=== PATIENT | female | born 1940 | race Caucasian/White ===

== ENCOUNTER 2016-08-19 18:56 | Emergency (ER) | payer MEDICARE, OTHER ==
[2016-08-19] MEDS ORDERED: Hydromorphone 1 mg/ml Ampule IV ONE (19:39)
[2016-08-19] MEDS ORDERED: Phenergan 25 MG INJ IV ONE (19:39)
--- NOTE | 2016-08-19 19:41 | ERPHSYRPT ---
- History of Present Illness Time Seen by Provider: 08/19/16 19:28 Source: patient Exam Limitations: no limitations Patient Subjective Stated Complaint: pt lost balance and fell on dog crate, co pain to right elbow and left middle back Triage Nursing Assessment: pt has swelling to right elbowable to move well, nail beds pink, has large contusion to left middle of back, no brusing or abrsions, pt walked in Physician History: ABOUT 4.5 HOURS AGO PT WAS CRAWLING ON THE COUCH ADJUSTING CURTAINS AT HOME AND FELL ON A METAL DOG CAGE WITH RESULTANT BACK PAIN OF THE ENTIRE LEFT SIDE AND RIGHT ELBOW PAIN. DENIES SHORTNESS OF AIR, VOMITING, NUMBNESS, WEAKNESS ON EITHER SIDE, HEADACHE. Allergies/Adverse Reactions: No Known Drug Allergies Allergy (Verified 08/19/16 19:11) Home Medications: Alprazolam 1 mg [Xanax 1 mg] 1 mg TID 08/19/16 [History] Diclofenac Sodium 75 mg BID 08/19/16 [History] Famotidine [Pepcid] 40 mg DAILY 08/19/16 [History] Fluoxetine HCl [Rapiflux] 40 mg BID 08/19/16 [History] Lisinopril 20 mg [Zestril 20 MG] 20 mg DAILY 08/19/16 [History] Simvastatin 40 mg [Zocor 40 mg] 40 mg DAILY 08/19/16 [History] Hx Tetanus, Diphtheria Vaccination/Date Given: No Hx Influenza Vaccination/Date Given: No Hx Pneumococcal Vaccination/Date Given: No Immunizations Up to Date: Yes - Review of Systems Ears, Nose, & Throat: Other (H.O.H.) Respiratory: No Dyspnea Abdominal/Gastrointestinal: No Vomiting Musculoskeletal: Back Pain, Joint Pain (RIGHT ELBOW PAIN), No Neck Pain Neurological: No Headache All Other Systems: Reviewed and Negative - Past Medical History Pertinent Past Medical History: Yes Neurological History: No Pertinent History ENT History: No Pertinent History Cardiac History: High Cholesterol, Hypertension Respiratory History: No Pertinent History Endocrine Medical History: No Pertinent History Musculoskeletal History: No Pertinent History GI Medical History: No Pertinent History Psycho-Social History: Depression Other Medical History: DEAF - Past Surgical History Past Surgical History: Yes Respiratory: No Pertinent History Gastrointestinal: No Pertinent History Musculoskeletal: Orthopedic Surgery - Social History Smoking Status: Never smoker Exposure to second hand smoke: Yes Drug Use: none Patient Lives Alone: No - Female History Hx Last Menstrual Period: post Hx Now: No - Nursing Vital Signs Nursing Vital Signs: Initial Vital Signs Temperature 97.9 F Temperature Source Oral Pulse Rate 78 Respiratory Rate 16 Blood Pressure [] 114/50 Pain Intensity 3 - Amrita Coma Score Best Eye Response (Anderson): (4) open spontaneously Best Verbal Response (Anderson): (5) oriented Best Motor Response (Anderson): (6) obeys commands Anderson Total: 15 - Physical Exam General Appearance: alert Head Injury: no evidence of injury Eye Exam: PERRL/EOMI ENT Exam: nml ext.inspection, other (H.O.H.; mm SLIGHTLY DRY) Neck Exam: No tenderness Respiratory/Chest Exam: normal breath sounds Cardiovascular Exam: regular rate/rhythm Gastrointestinal Exam: soft, normal bowel sounds Back Exam: decreased range of motion, other (LARGE AMOUNT OF EDEMA AND TENDERNESS OF THE LEFT SIDE OF THE BACK) Extremity Exam: normal inspection, normal range of motion, No sensory deficit Peripheral Pulses: dorsalis-pedis (R): 2+, dorsalis-pedis (L): 2+ Neurologic Exam: alert, cooperative, sensation nml Skin Exam: warm, dry SpO2 Interpretation: normal SpO2: 98 Oxygen Delivery: Room Air - Course Nursing assessment & vital signs reviewed: Yes - Radiology Exams Right Elbow X-ray Interpretation: Interpreted by me, No Fracture - CT Exams Chest CT Interpretation: Discussed w/radiologist (NO COMPS: LARGE AREA LEFT LOWER POSTERIOR CHEST WALL HEMATOMA/STS. NO FX. BILATERAL DEPENDENT ATELECTASIS & SCATTERED CALCIFIED MEDIASTINAL NODES. NO ACUTE CARDIOPULMONARY FINDINGS. SMALL HIATAL HERNIA.) Abdomen/Pelvis CT Interpretation: Discussed w/radiologist (NO COMPS: NO FX. MULTILEVEL LUMBAR DDD. CALCIFIED SPLENIC GRANULOMAS. NO ACUTE INTRA-ABDOMINAL OR PELVIC FINDINGS.) Ordered Tests: Active Orders 24 hr Category Date Time Status IV Insertion STAT Care 08/19/16 19:39 Active ABDOMEN AND PELVIS W/0 CONTRAS [CT] Stat Exams 08/19/16 19:39 Taken CHEST WITHOUT CONTRAST [CT] Stat Exams 08/19/16 19:39 Taken ELBOW (MINIMUM 3 VIEWS) Stat Exams 08/19/16 19:41 Taken AMYLASE Stat Lab 08/19/16 20:20 Completed CBC W DIFF Stat Lab 08/19/16 20:20 Completed CMP Stat Lab 08/19/16 20:20 Completed LIPASE Stat Lab 08/19/16 20:20 Completed MAG [MAGNESIUM] Stat Lab 08/19/16 20:20 Completed UA W/ MICROSCOPIC Stat Lab 08/19/16 21:04 Completed Medication Summary Generic Name Dose Route Start Last Admin Trade Name Freq PRN Reason Stop Dose Admin Sodium Chloride 1,000 mls @ 100 mls/hr 08/19/16 19:45 08/19/16 20:07 Sodium Chloride 0.9% 1000 Ml IV 09/18/16 19:44 100 mls/hr .Q10H TOYA Administration Sodium Chloride 1,000 mls @ 999 mls/hr 08/19/16 21:33 Sodium Chloride 0.9% 1000 Ml IV 08/19/16 22:33 .Q1H1M STA Discontinued Medications Generic Name Dose Route Start Last Admin Trade Name Freq PRN Reason Stop Dose Admin Hydromorphone HCl 1 mg 08/19/16 19:39 08/19/16 20:07 Hydromorphone 1 Mg/Ml Ampule IV 08/19/16 19:40 1 mg STAT ONE Administration Hydromorphone HCl Confirm 08/19/16 20:04 Hydromorphone 1 Mg/Ml Ampule Administered 08/19/16 20:05 Dose 1 mg .ROUTE .STK-MED ONE Promethazine HCl 12.5 mg 08/19/16 19:39 08/19/16 20:07 Phenergan 25 Mg Inj IV 08/19/16 19:40 12.5 mg STAT ONE Administration Promethazine HCl Confirm 08/19/16 20:04 Phenergan 25 Mg Inj Administered 08/19/16 20:05 Dose 25 mg .ROUTE .STK-MED ONE Lab/Rad Data: Laboratory Result Diagrams 08/19/16 20:20 08/19/16 20:20 Laboratory Results 08/19/16 08/19/16 08/19/16 Range/Units 21:04 20:20 20:20 WBC (4.0-10.5) K/mm3 RBC (4.1-5.4) M/mm3 Hgb (12.0-16.0) gm/dl Hct (35-47) % MCV (78-100) fl MCH (26-32) pg MCHC (32-36) g/dl RDW (11.5-14.0) % Plt Count (150-450) K/mm3 MPV (6-9.5) fl Gran % (36.0-66.0) % Lymphocytes % (24.0-44.0) % Monocytes % (0.0-12.0) % Eosinophils % (0.00-5.0) % Basophils % (0.0-0.4) % Basophils # (0-0.4) Sodium 139 (136-145) mEq/L Potassium 3.8 (3.5-5.1) mEq/L Chloride 102 (98-107) mEq/L Carbon Dioxide 22.6 (21-32) mEq/L Anion Gap 17.8 H (5-15) MEQ/L BUN 24 H (9-20) mg/dL Creatinine 1.18 (0.55-1.30) mg/dl Estimated GFR 48 ML/MIN Glucose 95 (70-110) MG/DL Calcium 8.8 (8.5-10.1) mg/dL Magnesium 2.0 (1.8-2.4) mg/dL Total Bilirubin 0.4 (0.2-1.0) mg/dL AST 29 (15-37) U/L ALT 27 (12-78) U/L Alkaline Phosphatase 79 (46-116) U/L Serum Total Protein 7.1 (6.4-8.2) gm/dL Albumin 3.8 (3.4-5.0) g/dL Amylase 34 (25-115) U/L Lipase 104 (73-393) U/L Ur Collection Type CLEAN CATCH Urine Color YELLOW (YELLOW) Urine Appearance CLEAR (CLEAR) Urine pH 5.5 (5-6) Ur Specific [place] >=1.030 (1.005-1.025) Urine Protein NEGATIVE (Negative) Urine Glucose (UA) NEGATIVE (NEGATIVE) mg/dL Urine Ketones SMALL-15 (NEGATIVE) Urine Nitrite NEGATIVE (NEGATIVE) Urine Bilirubin NEGATIVE (NEGATIVE) Urine Urobilinogen 0.2 (0-1) mg/dL Urine WBC (Auto) NEGATIVE (NEGATIVE) Urine RBC (Auto) SMALL (0-5) Jacob/ul Urine Microscopic RBC 15-25 (0-2) /HPF Urine Microscopic WBC 0-2 (0-5) /HPF Ur Epithelial Cells RARE (FEW) /HPF Urine Bacteria FEW (NEGATIVE) /HPF Specimen Received [id number] 08/19/16 Range/Units 20:20 WBC 15.4 H (4.0-10.5) K/mm3 RBC 3.78 L (4.1-5.4) M/mm3 Hgb 11.2 L (12.0-16.0) gm/dl Hct 34.6 L (35-47) % MCV 91.5 (78-100) fl MCH 29.6 (26-32) pg MCHC 32.4 (32-36) g/dl RDW 14.1 H (11.5-14.0) % Plt Count 365 (150-450) K/mm3 MPV 9.9 H (6-9.5) fl Gran % 73.3 H (36.0-66.0) % Lymphocytes % 16.4 L (24.0-44.0) % Monocytes % 8.8 (0.0-12.0) % Eosinophils % 1.2 (0.00-5.0) % Basophils % 0.3 (0.0-0.4) % Basophils # 0.05 (0-0.4) Sodium (136-145) mEq/L Potassium (3.5-5.1) mEq/L Chloride (98-107) mEq/L Carbon Dioxide (21-32) mEq/L Anion Gap (5-15) MEQ/L BUN (9-20) mg/dL Creatinine (0.55-1.30) mg/dl Estimated GFR ML/MIN Glucose (70-110) MG/DL Calcium (8.5-10.1) mg/dL Magnesium (1.8-2.4) mg/dL Total Bilirubin (0.2-1.0) mg/dL AST (15-37) U/L ALT (12-78) U/L Alkaline Phosphatase (46-116) U/L Serum Total Protein (6.4-8.2) gm/dL Albumin (3.4-5.0) g/dL Amylase (25-115) U/L Lipase (73-393) U/L Ur Collection Type Urine Color (YELLOW) Urine Appearance (CLEAR) Urine pH (5-6) Ur Specific [place] (1.005-1.025) Urine Protein (Negative) Urine Glucose (UA) (NEGATIVE) mg/dL Urine Ketones (NEGATIVE) Urine Nitrite (NEGATIVE) Urine Bilirubin (NEGATIVE) Urine Urobilinogen (0-1) mg/dL Urine WBC (Auto) (NEGATIVE) Urine RBC (Auto) (0-5) Jacob/ul Urine Microscopic RBC (0-2) /HPF Urine Microscopic WBC (0-5) /HPF Ur Epithelial Cells (FEW) /HPF Urine Bacteria (NEGATIVE) /HPF Specimen Received - Departure Time of Disposition: 21:41 Departure Disposition: Home Clinical Impression: LARGE HEMATOMA TO THE LEFT SIDE OF THE BACK, LEFT ELBOW SPRAIN, MILD DEHYDRATION, HTN, DEPRESSION, RIGHT ELBOW SPRAIN Condition: Fair Critical Care Time: No Referrals: KONG TAVERA MD [Primary Care Provider] - Instructions: Prevent Falls, Contusion Additional Instructions: FOLLOW UP WITH PRIVATE DOCTOR TOMORROW. WEAR RIGHT ARM SLING FOR COMFORT. RADHA WRAP TO RIGHT ELBOW FOR 4 DAYS. ELEVATE RIGHT ELBOW ABOVE HEART LEVEL FOR 24 HOURS. Prescriptions: Tramadol HCl 50 mg [Ultram 50 mg] 50 mg PO Q4H PRN PRN #14 tablet PRN Reason: Pain
[2016-08-19] MEDS ORDERED: Sodium Chloride 0.9% 1000 ML 1,000 ML IV SCH (19:45)
[2016-08-19] MEDS ORDERED: Phenergan 25 MG INJ ONE (20:04)
[2016-08-19] MEDS ORDERED: Hydromorphone 1 mg/ml Ampule ONE (20:04)
[2016-08-19] MEDS ORDERED: Sodium Chloride 0.9% 1000 ML 1,000 ML ONE (20:04)
[2016-08-19 20:24] LABS: BASOPHIL % 0.3 % (0.0-0.4); Eosinophil % 1.2 % (0.00-5.0); Granulocytes % 73.3 % (36.0-66.0); Lymphocytes % 16.4 % (24.0-44.0); Mean Cell Volume 91.5 fl (78-100); Mean Corpuscular Hemoglobin 29.6 pg (26-32); Mean Platelet Volume 9.9 fl (6-9.5); Monocytes % 8.8 % (0.0-12.0); Platelet Count 365 K/mm3 (150-450); Red Blood Count 3.78 M/mm3 (4.1-5.4); Red Cell Distribution Width 14.1 % (11.5-14.0); White Blood Count 15.4 K/mm3 (4.0-10.5)
[2016-08-19 20:58] LABS: ALBUMIN 3.8 g/dL (3.4-5.0); ANION GAP 17.8 MEQ/L (5-15); BILIRUBIN,TOTAL 0.4 mg/dL (0.2-1.0); Carbon Dioxide 22.6 mEq/L (21-32); Potassium 3.8 mEq/L (3.5-5.1); Total Protein 7.1 gm/dL (6.4-8.2)
[2016-08-19 21:07] VITALS: PULSE 78
[2016-08-19 21:17] LABS: Collection Type CLEAN CATCH
[2016-08-19 21:18] LABS: Bacteria FEW /HPF (NEGATIVE); COMPLETE URINE MICROSCOPIC? YES; Epithelial Cells RARE /HPF (FEW); Ph 5.5 (5-6); WBC 0-2 /HPF (0-5)
[2016-08-19 21:33] VITALS: O2SAT 98
[2016-08-19] MEDS ORDERED: Sodium Chloride 0.9% 1000 ML 1,000 ML IV STA (21:33)
[2016-08-19 22:08] VITALS: BP 125/53
--- NOTE | 2016-08-20 08:35 | XRAY ---
Indication: Left-sided pain following fall. Multiple contiguous axial images obtained through the chest without contrast as ordered. Comparison: None Mild bilateral dependent atelectasis. Tiny calcified granuloma in the posterior right lower lobe. No suspicious pulmonary mass, infiltrate, consolidation, effusion, or pneumothorax. Heart is not enlarged. Aorta mildly calcified without aneurysmal dilatation. Mediastinal and right perihilar calcified nodes. No pathologic mediastinal lymphadenopathy. Small hiatal hernia. Left posterior chest wall demonstrates large area of intramuscular hematoma and soft tissue swelling. Bony thorax intact. CT abdomen reported separately. Impression: 1. Left posterior chest wall hematoma and soft tissue swelling. No underlying fracture. 2. No acute cardiopulmonary abnormalities on this noncontrast exam. 3. Incidental small hiatal hernia and evidence for old granulomatous disease. CTDI 9.88
--- NOTE | 2016-08-20 08:41 | XRAY ---
Indication: Left-sided pain following fall. Multiple contiguous axial images obtained through the abdomen and pelvis without contrast as ordered. Comparison: None CT chest reported separately. Left posterior lower chest wall intramuscular hematoma and soft tissue swelling. Noncontrasted stomach and bowel loops appear nonobstructed. Normal appendix. No free fluid/air. Scattered calcified splenic granulomas. Remaining liver, gallbladder, pancreas, spleen, adrenal glands, kidneys, ureters, bladder, and uterus appear unremarkable for noncontrast exam. Mild aortoiliac calcifications without AAA. Osseous structures intact with moderate degenerative changes throughout the lumbar spine and mild dextrorotoscoliosis centered at the L2 level. Impression: 1. Left lower posterior chest wall hematoma and soft tissue swelling. No underlying fracture. 2. No acute intra-abdominal/pelvic abnormalities on this noncontrast exam. 3. Incidental calcified splenic granulomas, lumbar degenerative spondylosis, and scoliosis. CT DI 14.94
--- NOTE | 2016-08-20 08:50 | XRAY ---
Indication: Pain following fall. Comparison: None 3 views of the right elbow demonstrates tiny lateral epicondyle spur. No other bony, articular, or soft tissue abnormalities.
== END 2016-08-19 22:08 | disposition home or self-care (01) ==
LOC: ED 18:56
DX: S30.0XXA Contusion of lower back and pelvis, initial encounter (principal); S53.402A Unspecified sprain of left elbow, initial encounter; E86.0 Dehydration; I10 Essential (primary) hypertension; F32.9 Major depressive disorder, single episode, unspecified; S53.401A Unspecified sprain of right elbow, initial encounter; W01.198A Fall on same level from slipping, tripping and stumbling with subsequent striking against other object, initial encounter
CPT/HCPCS: 36000; 36415; 71250; 73080; 74176; 80053; 81000; 82150; 83690; 83735; 85025; 96360; 96361; 96374; 96375; 99285; J1170; J2550

== ENCOUNTER 2021-04-20 13:54 | Inpatient (IN) | payer MEDICARE ==
[2021-04-20] MEDS ORDERED: VASOTEC I.V. 2.5 MG IV ONE ×2 (14:29→14:35)
[2021-04-20] MEDS: Sodium Chloride 0.9% 1000 ML 1,000 ML IV SCH (14:36)
[2021-04-20 14:58] LABS: Absolute Neutrophil Ct (ANC) 8.59 (1.4-6.9); BASOPHIL % 0.5 % (0.0-0.4); Basophil (Absolute #) 0.06 (0-0.4); Eosinophil % 2.7 % (0.00-5.0); Eosinophil (Absolute #) 0.31 (0-0.5); Hematocrit 37.8 % (35-47); Hemoglobin 11.5 gm/dl (12.0-16.0); Lymphocyte (Absolute #) 1.55 (1.0-4.6); Lymphocytes % 13.7 % (24.0-44.0); Mean Cell Volume 92.6 fl (78-100); Mean Corpuscular Hemoglobin 28.2 pg (26-32); Mean Corpuscular Hgb Concent. 30.4 g/dl (32-36); Mean Platelet Volume 9.5 fl (7.5-11.0); Monocyte (Absolute #) 0.82 (0.0-1.3); Monocytes % 7.2 % (0.0-12.0); Neutrophil % 75.9 % (36.0-66.0); Platelet Count 266 K/mm3 (150-450); Red Blood Count 4.08 M/mm3 (4.1-5.4); Red Cell Distribution Width 14.2 % (11.5-14.0); White Blood Count 11.3 K/mm3 (4.0-10.5)
[2021-04-20 14:58] LABS: Appearance CLEAR (CLEAR); Bilirubin NEGATIVE (NEGATIVE); Blood SMALL Ery/ul (0-5); Glucose NEGATIVE (NEGATIVE); Ketones NEGATIVE (NEGATIVE); Leukocyte Esterase NEGATIVE (NEGATIVE); Mucus SLIGHT /HPF (NEGATIVE); Nitrite NEGATIVE (NEGATIVE); Protein,Urine Dip NEGATIVE (Negative); Specific Gravity 1.008 (1.005-1.025); Urobilinogen NEGATIVE mg/dL (0-1)
[2021-04-20 15:01] LABS: Bacteria NONE SEEN /HPF (NEGATIVE)
[2021-04-20 15:07] LABS: ALBUMIN 4.2 g/dL (3.5-5.0); ALKALINE PHOSPHATASE 77 U/L (38-126); ANION GAP 11.2 MEQ/L (5-15); BLOOD UREA NITROGEN 19 mg/dL (7-17); CHLORIDE 103 mmol/L (98-107); Calcium 9.2 mg/dL (8.4-10.2); Carbon Dioxide 28 mmol/L (22-30); Creatinine 1 0.76 mg/dL (0.52-1.04); EST GLOMERULAR FILTRATION RATE > 60.0 ML/MIN; Glucose 97 mg/dL (74-106); Potassium 4.4 mmol/L (3.5-5.1); SGOT/AST 29 U/L (14-36); SGPT/ALT 23 U/L (0-35); SODIUM 138 mmol/L (137-145); Total Protein 6.6 g/dL (6.3-8.2)
--- NOTE | 2021-04-20 15:07 | XRAY ---
Indication: Altered mental status. Confusion. Comparison: None Portable apical lordotic chest clear. Heart not enlarged with incidental mediastinal/hilar calcified nodes. Bony thorax intact with mild osteopenia, degenerative changes, and mild double curvature scoliosis. Impression: Nonacute chest with chronic features.
--- NOTE | 2021-04-20 15:07 | XRAY ---
Indication: Confusion. Acute mental status change. Multiple contiguous axial images obtained through the head without contrast. Comparison: None Bilateral posterior cochlear implants produces extreme beam artifact limiting exam. There is age-appropriate global atrophy and moderate/advanced periventricular degenerative micro-ischemia bilaterally. No obvious acute intracranial hemorrhage, abnormal extra-axial fluid collection, or mass effect. Fourth ventricle is midline without hydrocephalus. Visualized paranasal sinuses and mastoid air cells are clear. Impression: 1. 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 2. Atrophy and degenerative micro-ischemia within normal limits for patient's age. 3. No gross acute intracranial abnormalities.
[2021-04-20 15:12] LABS: Amphetamine,Urine NEGATIVE (NEGATIVE); Barbiturate,Urine NEGATIVE (NEGATIVE); Benzodiazepine,Urine POSITIVE (NEGATIVE); Cocaine,Urine NEGATIVE (NEGATIVE); Methadone,Urine NEGATIVE (NEGATIVE); Opiate,Urine POSITIVE (NEGATIVE); PCP,Urine NEGATIVE (NEGATIVE); THC,Urine NEGATIVE (NEGATIVE)
[2021-04-20] MEDS ORDERED: NORVASC 5 MG ONE (16:08)
--- NOTE | 2021-04-20 16:08 | ERPHSYRPT ---
- History of Present Illness Time Seen by Provider: 04/20/21 13:55 Source: patient Exam Limitations: no limitations Patient Subjective Stated Complaint: EMS states "Family said that she has been confused for a couple days but today became combative. we gave 2.5 mg versed iv push and she calmed down and became pleasantly confused." Triage Nursing Assessment: Pt presented alert and confused. PT denied any pain, hard of hearing. PT in no apaprent respiratory distress. Physician History: Patient is a 80-year-old white female who resents by ambulance from home where she became very combative. The family reports that she had been confused for a couple of days but today was quite aggressive. She has a history of a fiery personality and can at times be quite agitated. Timing/Duration: day(s) (2) Severity of Symptoms-Max: moderate Severity of Symptoms-Current: mild Associated Symptoms: angry, agitated, confused, hostile Previous symptoms: same symptoms as today Allergies/Adverse Reactions: No Known Drug Allergies Allergy (Verified 08/19/16 19:11) Home Medications: ALPRAZolam 1 MG [Xanax 1 mg] 1 mg TID 08/19/16 [History] Diclofenac Sodium 75 mg BID 08/19/16 [History] Famotidine [Pepcid] 40 mg DAILY 08/19/16 [History] Fluoxetine HCl [Rapiflux] 40 mg BID 08/19/16 [History] Lisinopril 20 mg [Zestril 20 MG] 20 mg DAILY 08/19/16 [History] Simvastatin 40 mg [Zocor 40 mg] 40 mg DAILY 08/19/16 [History] Gabapentin 100 mg [Neurontin 100 MG] 100 mg PO TID 04/20/21 [History] Hydrocodone/Acetaminophen [Hydrocodone-Acetamin 10-325 mg] 1 each PO TID 04/20/21 [History] Omeprazole 20 mg PO DAILY 04/20/21 [History] Hx Tetanus, Diphtheria Vaccination/Date Given: No Hx Influenza Vaccination/Date Given: No Hx Pneumococcal Vaccination/Date Given: No Immunizations Up to Date: Yes Travel Risk - International Travel Have you traveled outside of the country in past 3 weeks: No - Coronavirus Screening Are you exhibiting any of the following symptoms?: No Close contact with a COVID-19 positive Pt in past 14-21 Days: No - Vaccine Status Have you recieved a Covid-19 vaccination: (UNKNOWN) - Past Medical History Pertinent Past Medical History: Yes Neurological History: No Pertinent History ENT History: No Pertinent History Cardiac History: High Cholesterol, Hypertension Respiratory History: No Pertinent History Endocrine Medical History: No Pertinent History Musculoskeletal History: No Pertinent History GI Medical History: No Pertinent History Psycho-Social History: Depression Other Medical History: DEAF - Past Surgical History Past Surgical History: Yes Respiratory: No Pertinent History Gastrointestinal: No Pertinent History Musculoskeletal: Orthopedic Surgery - Social History Smoking Status: Never smoker Exposure to second hand smoke: Yes Drug Use: none Patient Lives Alone: No - Review of Systems Constitutional: No Fever, No Chills Eyes: No Symptoms Ears, Nose, & Throat: No Symptoms, Hearing Changes (Patient is very hard of hearing has bilateral cochlear implants) Respiratory: No Cough, No Dyspnea Cardiac: No Chest Pain, No Edema, No Syncope Abdominal/Gastrointestinal: No Abdominal Pain, No Nausea, No Vomiting, No Diarrhea Genitourinary Symptoms: No Dysuria Musculoskeletal: No Back Pain, No Neck Pain Skin: No Rash Neurological: Irritability, No Dizziness, No Focal Weakness, No Sensory Changes Psychological: No Symptoms, Emotional Lability Endocrine: No Symptoms Hematologic/Lymphatic: No Symptoms Immunological/Allergic: No Symptoms All Other Systems: Reviewed and Negative - Nursing Vital Signs Nursing Vital Signs: Initial Vital Signs Temperature 99.4 F 04/20/21 13:54 Pulse Rate 105 H 04/20/21 13:54 Respiratory Rate 16 04/20/21 13:54 Blood Pressure 240/91 04/20/21 13:54 O2 Sat by Pulse Oximetry 98 04/20/21 13:54 Pain Scale Pain Intensity 0 - Physical Exam General Appearance: mild distress Eyes, Ears, Nose, Throat Exam: normal ENT inspection, moist mucous membranes Neck Exam: normal inspection, non-tender, supple Respiratory Exam: normal breath sounds, lungs clear, No respiratory distress Cardiovascular Exam: regular rate/rhythm, No edema Gastrointestinal/Abdominal Exam: soft, No tenderness, No distention Extremities Exam: normal inspection, normal range of motion, No evidence of injury, No edema Current Suicidality: denies suicide plan Neurological Exam: alert, 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 as tested, oriented x 3 Appearance: appropriate appearance Behavior/Eye Contact/Speech: alert & cooperative, normal speech, belligerent, agitated Thoughts/Hallucinations: no apparent hallucination Skin Exam: normal color, warm, dry, No rash SpO2 Interpretation: normal SpO2: 98 O2 Delivery: Room Air - Course Nursing assessment & vital signs reviewed: Yes EKG Interpreted by Me: RATE (96), NORMAL AXIS, prolonged QT interval, Non- specific ST Changes - Radiology Exams Chest X-ray Interpretation: Reviewed by me - CT Exams Head CT Interpretation: Negative (Negative for acute findings) Ordered Tests: Active Orders 24 hr Category Date Time Status EKG-ER Only STAT Care 04/20/21 14:29 Active NPO (ED) STAT Care 04/20/21 14:32 Active CHEST 1 VIEW (PORTABLE) Stat Exams 04/20/21 14:33 Ordered HEAD WITHOUT CONTRAST [CT] Stat Exams 04/20/21 14:30 Taken BLOOD CULTURE Stat Lab 04/20/21 14:45 Ordered CBC W DIFF Stat Lab 04/20/21 14:45 Completed CMP Stat Lab 04/20/21 14:45 Received CULTURE,URINE Stat Lab 04/20/21 14:31 Ordered Lactic Acid Stat Lab 04/20/21 14:32 Ordered TROPONIN Q3H Lab 04/20/21 14:45 Received TROPONIN Q3H Lab 04/20/21 17:45 Ordered TROPONIN Q3H Lab 04/20/21 20:45 Ordered TROPONIN Q3H Lab 04/20/21 23:45 Ordered TSH [TSH, 3RD Generation] Stat Lab 04/20/21 15:00 Ordered UA W/RFX UR CULTURE Stat Lab 04/20/21 14:30 Ordered Urine Triage Profile Stat Lab 04/20/21 14:30 Ordered Medication Summary Generic Name Dose Route Start Last Admin Trade Name Freq PRN Reason Stop Dose Admin Sodium Chloride 1,000 mls @ 100 mls/hr 04/20/21 14:30 04/20/21 14:36 Sodium Chloride 0.9% 1000 Ml IV 05/20/21 14:29 100 mls/hr .Q10H TOYA Administration Discontinued Medications Generic Name Dose Route Start Last Admin Trade Name Freq PRN Reason Stop Dose Admin Enalaprilat 2.5 mg 04/20/21 14:29 04/20/21 14:36 Enalaprilat 2.5 Mg Injection IV 04/20/21 14:30 2.5 mg STAT ONE Administration Enalaprilat Confirm 04/20/21 14:35 Enalaprilat 2.5 Mg Injection Administered 04/20/21 14:36 Dose 2.5 mg IV .STK-MED ONE Lab/Rad Data: Laboratory Result Diagrams 04/20/21 14:45 04/20/21 14:45 Laboratory Results 04/20/21 04/20/21 04/20/21 Range/Units 15:10 15:09 14:45 WBC (4.0-10.5) K/mm3 RBC (4.1-5.4) M/mm3 Hgb (12.0-16.0) gm/dl Hct (35-47) % MCV (78-100) fl MCH (26-32) pg MCHC (32-36) g/dl RDW (11.5-14.0) % Plt Count (150-450) K/mm3 MPV (7.5-11.0) fl Gran % (36.0-66.0) % Eos # (Auto) (0-0.5) Absolute Lymphs (auto) (1.0-4.6) Absolute Monos (auto) (0.0-1.3) Lymphocytes % (24.0-44.0) % Monocytes % (0.0-12.0) % Eosinophils % (0.00-5.0) % Basophils % (0.0-0.4) % Absolute Granulocytes (1.4-6.9) Basophils # (0-0.4) Sodium (137-145) mmol/L Potassium (3.5-5.1) mmol/L Chloride (98-107) mmol/L Carbon Dioxide (22-30) mmol/L Anion Gap (5-15) MEQ/L BUN (7-17) mg/dL Creatinine (0.52-1.04) mg/dL Estimated GFR ML/MIN Glucose (74-106) mg/dL Lactic Acid (0.4-2.0) Calcium (8.4-10.2) mg/dL Total Bilirubin (0.2-1.3) mg/dL AST (14-36) U/L ALT (0-35) U/L Alkaline Phosphatase (38-126) U/L Ammonia < 9 L (9-30) umol/L Troponin I < 0.012 (0.000-0.034) ng/mL Serum Total Protein (6.3-8.2) g/dL Albumin (3.5-5.0) g/dL Urine Color (YELLOW) Urine Appearance (CLEAR) Urine pH (5-6) Ur Specific [place] (1.005-1.025) Urine Protein (Negative) Urine Ketones (NEGATIVE) Urine Blood (0-5) Jacob/ul Urine Nitrite (NEGATIVE) Urine Bilirubin (NEGATIVE) Urine Urobilinogen (0-1) mg/dL Ur Leukocyte Esterase (NEGATIVE) Urine WBC (Auto) (0-5) /HPF Urine RBC (Auto) (0-2) /HPF U Epithel Cells (Auto) (FEW) /HPF Urine Bacteria (Auto) (NEGATIVE) /HPF Urine Mucus (Auto) (NEGATIVE) /HPF Urine Culture Reflexed (NO) Urine Glucose (NEGATIVE) mg/dL Urine Opiates Level POSITIVE (NEGATIVE) Ur Methadone NEGATIVE (NEGATIVE) Urine Barbiturates NEGATIVE (NEGATIVE) Ur Phencyclidine (PCP) NEGATIVE (NEGATIVE) Urine Amphetamine NEGATIVE (NEGATIVE) U Benzodiazepine Level POSITIVE (NEGATIVE) Urine Cocaine NEGATIVE (NEGATIVE) Urine Marijuana (THC) NEGATIVE (NEGATIVE) 04/20/21 04/20/21 04/20/21 Range/Units 14:45 14:45 14:32 WBC 11.3 H (4.0-10.5) K/mm3 RBC 4.08 L (4.1-5.4) M/mm3 Hgb 11.5 L (12.0-16.0) gm/dl Hct 37.8 (35-47) % MCV 92.6 (78-100) fl MCH 28.2 (26-32) pg MCHC 30.4 L (32-36) g/dl RDW 14.2 H (11.5-14.0) % Plt Count 266 (150-450) K/mm3 MPV 9.5 (7.5-11.0) fl Gran % 75.9 H (36.0-66.0) % Eos # (Auto) 0.31 (0-0.5) Absolute Lymphs (auto) 1.55 (1.0-4.6) Absolute Monos (auto) 0.82 (0.0-1.3) Lymphocytes % 13.7 L (24.0-44.0) % Monocytes % 7.2 (0.0-12.0) % Eosinophils % 2.7 (0.00-5.0) % Basophils % 0.5 (0.0-0.4) % Absolute Granulocytes 8.59 H (1.4-6.9) Basophils # 0.06 (0-0.4) Sodium 138 (137-145) mmol/L Potassium 4.4 (3.5-5.1) mmol/L Chloride 103 (98-107) mmol/L Carbon Dioxide 28 (22-30) mmol/L Anion Gap 11.2 (5-15) MEQ/L BUN 19 H (7-17) mg/dL Creatinine 0.76 (0.52-1.04) mg/dL Estimated GFR > 60.0 ML/MIN Glucose 97 (74-106) mg/dL Lactic Acid 2.2 H (0.4-2.0) Calcium 9.2 (8.4-10.2) mg/dL Total Bilirubin 0.40 (0.2-1.3) mg/dL AST 29 (14-36) U/L ALT 23 (0-35) U/L Alkaline Phosphatase 77 (38-126) U/L Ammonia (9-30) umol/L Troponin I (0.000-0.034) ng/mL Serum Total Protein 6.6 (6.3-8.2) g/dL Albumin 4.2 (3.5-5.0) g/dL Urine Color (YELLOW) Urine Appearance (CLEAR) Urine pH (5-6) Ur Specific [place] (1.005-1.025) Urine Protein (Negative) Urine Ketones (NEGATIVE) Urine Blood (0-5) Jacob/ul Urine Nitrite (NEGATIVE) Urine Bilirubin (NEGATIVE) Urine Urobilinogen (0-1) mg/dL Ur Leukocyte Esterase (NEGATIVE) Urine WBC (Auto) (0-5) /HPF Urine RBC (Auto) (0-2) /HPF U Epithel Cells (Auto) (FEW) /HPF Urine Bacteria (Auto) (NEGATIVE) /HPF Urine Mucus (Auto) (NEGATIVE) /HPF Urine Culture Reflexed (NO) Urine Glucose (NEGATIVE) mg/dL Urine Opiates Level (NEGATIVE) Ur Methadone (NEGATIVE) Urine Barbiturates (NEGATIVE) Ur Phencyclidine (PCP) (NEGATIVE) Urine Amphetamine (NEGATIVE) U Benzodiazepine Level (NEGATIVE) Urine Cocaine (NEGATIVE) Urine Marijuana (THC) (NEGATIVE) 04/20/21 Range/Units 14:30 WBC (4.0-10.5) K/mm3 RBC (4.1-5.4) M/mm3 Hgb (12.0-16.0) gm/dl Hct (35-47) % MCV (78-100) fl MCH (26-32) pg MCHC (32-36) g/dl RDW (11.5-14.0) % Plt Count (150-450) K/mm3 MPV (7.5-11.0) fl Gran % (36.0-66.0) % Eos # (Auto) (0-0.5) Absolute Lymphs (auto) (1.0-4.6) Absolute Monos (auto) (0.0-1.3) Lymphocytes % (24.0-44.0) % Monocytes % (0.0-12.0) % Eosinophils % (0.00-5.0) % Basophils % (0.0-0.4) % Absolute Granulocytes (1.4-6.9) Basophils # (0-0.4) Sodium (137-145) mmol/L Potassium (3.5-5.1) mmol/L Chloride (98-107) mmol/L Carbon Dioxide (22-30) mmol/L Anion Gap (5-15) MEQ/L BUN (7-17) mg/dL Creatinine (0.52-1.04) mg/dL Estimated GFR ML/MIN Glucose (74-106) mg/dL Lactic Acid (0.4-2.0) Calcium (8.4-10.2) mg/dL Total Bilirubin (0.2-1.3) mg/dL AST (14-36) U/L ALT (0-35) U/L Alkaline Phosphatase (38-126) U/L Ammonia (9-30) umol/L Troponin I (0.000-0.034) ng/mL Serum Total Protein (6.3-8.2) g/dL Albumin (3.5-5.0) g/dL Urine Color STRAW (YELLOW) Urine Appearance CLEAR (CLEAR) Urine pH 8.0 (5-6) Ur Specific [place] 1.008 (1.005-1.025) Urine Protein NEGATIVE (Negative) Urine Ketones NEGATIVE (NEGATIVE) Urine Blood SMALL (0-5) Jacob/ul Urine Nitrite NEGATIVE (NEGATIVE) Urine Bilirubin NEGATIVE (NEGATIVE) Urine Urobilinogen NEGATIVE (0-1) mg/dL Ur Leukocyte Esterase NEGATIVE (NEGATIVE) Urine WBC (Auto) NONE (0-5) /HPF Urine RBC (Auto) NONE (0-2) /HPF U Epithel Cells (Auto) NONE (FEW) /HPF Urine Bacteria (Auto) NONE SEEN (NEGATIVE) /HPF Urine Mucus (Auto) SLIGHT (NEGATIVE) /HPF Urine Culture Reflexed ORDERED SEPARATELY (NO) Urine Glucose NEGATIVE (NEGATIVE) mg/dL Urine Opiates Level (NEGATIVE) Ur Methadone (NEGATIVE) Urine Barbiturates (NEGATIVE) Ur Phencyclidine (PCP) (NEGATIVE) Urine Amphetamine (NEGATIVE) U Benzodiazepine Level (NEGATIVE) Urine Cocaine (NEGATIVE) Urine Marijuana (THC) (NEGATIVE) - Progress Progress: improved Discussed with : Jada Will see patient in: hospital (observation) - Departure Departure Disposition: Observation Clinical Impression: Altered mental status Condition: Stable Critical Care Time: No Referrals: KONG TAVERA MD [Primary Care Provider] - Follow up/PCP as directed
[2021-04-20] MEDS ORDERED: Zestril 20 MG ONE (16:13)
[2021-04-20] MEDS ORDERED: Sodium Chloride 0.9% 1000 ML 1,000 ML IV SCH (16:15)
[2021-04-20] MEDS ORDERED: Protonix 40MG Tablet PO ONE (16:16)
[2021-04-20] MEDS ORDERED: Zestril 20 MG PO ONE (16:17)
[2021-04-20] MEDS ORDERED: Protonix 40MG Tablet ONE (16:22)
[2021-04-20] MEDS ORDERED: NORVASC 5 MG PO ONE (16:23)
[2021-04-20 17:39] LABS: INFLUENZA A NEGATIVE (NEGATIVE); INFLUENZA B NEGATIVE (NEGATIVE); RESPIRATORY SYNCTIAL VIRUS NEGATIVE (Negative); SARS-CoV-2 Xpert Express NEGATIVE (NEGATIVE)
[2021-04-20] MEDS ORDERED: ZOCOR 20MG ONE (21:45)
[2021-04-20] MEDS ORDERED: Zetia 10 MG ONE (21:45)
[2021-04-20] MEDS ORDERED: ZOCOR 20 MG PO SCH ×2 (22:00)
[2021-04-20] MEDS ORDERED: ZETIA 10 MG PO SCH ×2 (22:00)
[2021-04-20] MEDS: VOLTAREN 50 MG PO SCH (22:15)
[2021-04-20] MEDS: Neurontin 100 MG PO SCH (22:19)
[2021-04-21] MEDS: Sodium Chloride 0.9% 1000 ML 1,000 ML IV SCH ×2 (02:07→12:05)
[2021-04-21 05:34] LABS: Absolute Neutrophil Ct (ANC) 8.97 (1.4-6.9); BASOPHIL % 0.2 % (0.0-0.4); Basophil (Absolute #) 0.02 (0-0.4); Eosinophil % 0.2 % (0.00-5.0); Eosinophil (Absolute #) 0.02 (0-0.5); Hemoglobin 12.3 gm/dl (12.0-16.0); Lymphocyte (Absolute #) 1.26 (1.0-4.6); Lymphocytes % 11.5 % (24.0-44.0); Mean Cell Volume 88.8 fl (78-100); Mean Corpuscular Hgb Concent. 31.5 g/dl (32-36); Mean Platelet Volume 9.2 fl (7.5-11.0); Monocyte (Absolute #) 0.72 (0.0-1.3); Monocytes % 6.6 % (0.0-12.0); Neutrophil % 81.5 % (36.0-66.0); Platelet Count 286 K/mm3 (150-450); Red Blood Count 4.39 M/mm3 (4.1-5.4); Red Cell Distribution Width 14.4 % (11.5-14.0)
[2021-04-21 06:03] LABS: ALKALINE PHOSPHATASE 86 U/L (38-126); ANION GAP 14.2 MEQ/L (5-15); BLOOD UREA NITROGEN 9 mg/dL (7-17); CHLORIDE 102 mmol/L (98-107); Calcium 9.4 mg/dL (8.4-10.2); Carbon Dioxide 23 mmol/L (22-30); Creatinine 1 0.58 mg/dL (0.52-1.04); EST GLOMERULAR FILTRATION RATE > 60.0 ML/MIN; Glucose 116 mg/dL (74-106); Potassium 3.9 mmol/L (3.5-5.1); SGOT/AST 30 U/L (14-36); SGPT/ALT 22 U/L (0-35); SODIUM 136 mmol/L (137-145); Total Protein 6.6 g/dL (6.3-8.2)
[2021-04-21] MEDS: Neurontin 100 MG PO SCH ×3 (09:33→21:07)
[2021-04-21] MEDS: Prozac 20 MG PO SCH (09:33)
[2021-04-21] MEDS: Protonix 40MG Tablet PO SCH (09:33)
[2021-04-21] MEDS: NORVASC 5 MG PO SCH (09:34)
[2021-04-21] MEDS: Zestril 20 MG PO SCH (09:40)
[2021-04-21] MEDS: ZOCOR 20MG PO SCH (09:40)
[2021-04-21] MEDS ORDERED: NON-FORMULARY ITEM (Omeprazole [Omeprazole] 20 MG Tab.Rap.Dr) PO SCH (10:00)
[2021-04-21] MEDS ORDERED: NON-FORMULARY ITEM (Simvastatin 40 Mg [Zocor 40 Mg] 40 MG Tablet) PO SCH (10:00)
[2021-04-21] MEDS: VOLTAREN 50 MG PO SCH ×2 (11:13→21:07)
[2021-04-22 05:59] LABS: Hematocrit 36.7 % (35-47); Hemoglobin 11.6 gm/dl (12.0-16.0); Mean Corpuscular Hemoglobin 28.4 pg (26-32); Mean Corpuscular Hgb Concent. 31.6 g/dl (32-36); Mean Platelet Volume 9.5 fl (7.5-11.0); Platelet Count 282 K/mm3 (150-450); Red Blood Count 4.08 M/mm3 (4.1-5.4); Red Cell Distribution Width 14.8 % (11.5-14.0)
[2021-04-22 06:53] LABS: ANION GAP 10.3 MEQ/L (5-15); BLOOD UREA NITROGEN 9 mg/dL (7-17); CHLORIDE 106 mmol/L (98-107); Carbon Dioxide 25 mmol/L (22-30); Creatinine 1 0.67 mg/dL (0.52-1.04); EST GLOMERULAR FILTRATION RATE > 60.0 ML/MIN; Glucose 107 mg/dL (74-106); Potassium 3.3 mmol/L (3.5-5.1); SODIUM 138 mmol/L (137-145)
[2021-04-22] MEDS ORDERED: APRESOLINE 20 MG/ML INJ IV ONE (08:06)
[2021-04-22] MEDS ORDERED: Klor Con 10 MEQ PO ONE (10:00)
[2021-04-22] MEDS: Prozac 20 MG PO SCH (10:49)
[2021-04-22] MEDS: Cardizem CD 120 MG PO SCH (10:50)
[2021-04-22] MEDS: NORVASC 5 MG PO SCH (10:52)
[2021-04-22] MEDS: Zestril 20 MG PO SCH (10:53)
[2021-04-22] MEDS: Protonix 40MG Tablet PO SCH (10:55)
[2021-04-22] MEDS: ZOCOR 20MG PO SCH (10:55)
[2021-04-22] MEDS: VOLTAREN 50 MG PO SCH ×2 (10:55→21:31)
[2021-04-22] MEDS ORDERED: Zofran 4 MG/2 ML VIAL IV PRN (10:56)
[2021-04-22] MEDS: Neurontin 100 MG PO SCH ×3 (11:40→21:31)
[2021-04-22] MEDS: TYLENOL 325 MG PO PRN (15:41)
[2021-04-22] MEDS: Sodium Chloride 0.9% 1000 ML 1,000 ML IV SCH (18:04)
--- NOTE | 2021-04-22 18:45 | XRAY ---
Indication: Elevated temperature. Comparison: April 20, 2021. Portable AP/lateral chest again demonstrates normal heart and lungs with incidental mediastinal/hilar calcified nodes. No new/acute findings. Comment: Preliminary interpretation made by [facility]. No critical discrepancy.
[2021-04-23 07:39] VITALS: O2SAT 97
[2021-04-23] MEDS: Prozac 20 MG PO SCH (07:46)
[2021-04-23] MEDS: ZOCOR 20MG PO SCH (07:46)
[2021-04-23] MEDS: NORVASC 5 MG PO SCH (07:47)
[2021-04-23] MEDS: Protonix 40MG Tablet PO SCH (07:47)
[2021-04-23] MEDS: Cardizem CD 120 MG PO SCH (07:47)
[2021-04-23] MEDS: Zestril 20 MG PO SCH (07:47)
[2021-04-23] MEDS: Neurontin 100 MG PO SCH (07:47)
[2021-04-23] MEDS: VOLTAREN 50 MG PO SCH (07:48)
[2021-04-23] MEDS: TYLENOL 325 MG PO PRN (07:50)
[2021-04-23 12:03] VITALS: BP 146/65; PULSE 80
--- NOTE | 2021-04-26 21:17 | PCM.SSS ---
History of Present Illness - Chief Complaint Chief Complaint: AMS Date: 04/23/21 History of Present Illness: is a 80 year old female. Presented to ER with altered mental status per her family member, who noted that the patient had some increased confusion over the past several months but appeared to be worse and ambulance was called, pt. was angry and combative upon presentation to ER and given haldol which helped her to calm down. Pt. was admitted for further evaluation and management. - Review of Systems Constitutional: No Fever, No Chills Eyes: No Symptoms Ears, Nose, & Throat: No Symptoms Respiratory: No Cough, No Short Of Breath Cardiac: No Chest Pain, No Edema, No Syncope Abdominal/Gastrointestinal: No Abdominal Pain, No Nausea, No Vomiting, No Diarrhea Genitourinary Symptoms: No Dysuria Musculoskeletal: No Back Pain, No Neck Pain Skin: No Rash Neurological: No Dizziness, No Focal Weakness, No Sensory Changes Psychological: No Symptoms Endocrine: No Symptoms Hematologic/Lymphatic: No Symptoms Immunological/Allergic: No Symptoms Medications & Allergies Home Medications: Home Medication List ALPRAZolam 1 MG [Xanax 1 mg] 1 mg TID 08/19/16 [History Confirmed 04/20/21] Diclofenac Sodium 75 mg BID 08/19/16 [History Confirmed 04/20/21] Fluoxetine HCl [Rapiflux] 40 mg BID 08/19/16 [History Confirmed 04/20/21] Lisinopril 20 mg [Zestril 20 MG] 20 mg DAILY 08/19/16 [History Confirmed 04/20/21] Simvastatin 40 mg [Zocor 40 mg] 40 mg DAILY 08/19/16 [History Confirmed 04/20/21] Gabapentin 100 mg [Neurontin 100 MG] 100 mg PO TID 04/20/21 [History Confirmed 04/20/21] Hydrocodone/Acetaminophen [Hydrocodone-Acetamin 10-325 mg] 1 each PO TID 04/20/21 [History Confirmed 04/20/21] Omeprazole 20 mg PO DAILY 04/20/21 [History Confirmed 04/20/21] Smz/Tmp Ds Tablet [Bactrim Ds Tablet] 1 tab PO BID 10 Days #20 tablet 04/23/21 [Rx] Allergies/Adverse Reactions: Allergies Allergy/AdvReac Type Severity Reaction Status Date / Time No Known Drug Allergies Allergy Verified 08/19/16 19:11 - Past Medical History Past Medical History: Yes Neurological History: No Pertinent History ENT History: No Pertinent History Cardiac History: High Cholesterol, Hypertension Respiratory History: No Pertinent History Endocrine Medical History: No Pertinent History Musculoskelatal History: No Pertinent History GI Medical History: No Pertinent History Pyscho-Social History: Depression Comment: DEAF - Female History Are you now?: No - Past Surgical History Past Surgical History: Yes Respiratory Surgery: No Pertinent History GI Surgical History: No Pertinent History Musculskeletal Surgical Hx: Orthopedic Surgery - Social History Smoking Status: Never smoker Exposure to second hand smoke: Yes Alcohol: None Drug Use: none - Physical Exam General Appearance: no apparent distress, alert Neurologic Exam: alert, cooperative, normal mood/affect, nml cerebellar function, nml station & gait, sensation nml, other (Patient is oriented X2 (person and place), but notes she does not easily recall the date.), No motor deficits Eye Exam: PERRL/EOMI, eyes nml inspection Ears, Nose, Throat Exam: normal ENT inspection, TMs normal, pharynx normal, moist mucous membranes Neck Exam: normal inspection, non-tender, supple, full range of motion Respiratory Exam: normal breath sounds, lungs clear, No respiratory distress Cardiovascular Exam: regular rate/rhythm, normal heart sounds, normal peripheral pulses Gastrointestinal/Abdomen Exam: soft, normal bowel sounds, No tenderness, No mass Back Exam: normal inspection, normal range of motion, No CVA tenderness, No vertebral tenderness Extremity Exam: normal inspection, normal range of motion, pelvis stable Skin Exam: normal color, warm, dry, No rash Lymphatic Exam: No adenopathy Results - Labs Lab/Micro Results: Microbiology 04/20/21 15:10 Blood Culture Gram Stain - Final Blood Not Reportable Blood Culture - Final NO GROWTH 04/20/21 14:45 Blood Culture Gram Stain - Final Blood Not Reportable Blood Culture - Final NO GROWTH 04/20/21 15:00 Urine Culture - Final Catherized NO GROWTH Assessment/Plan (1) Mild dementia Status: Acute Code(s): F03.90 - UNSPECIFIED DEMENTIA WITHOUT BEHAVIORAL DISTURBANCE (2) Altered mental status Status: Acute Code(s): R41.82 - ALTERED MENTAL STATUS, UNSPECIFIED Hospital Summary - Hospital Course Hospital Course: Pt. was admitted and found to have mild dementia, but in general was able to care for herself at current state, she was felt to be stable for discharge on 04/22 but noted some abdominal discomfort and was observed another 24 hours to see if anything may come of these complaints. The following day the patient wa s stable and felt to be able to care for herself in her current situation. It was noted the patient may have a subclinical infection, although no etiology could be found. With no obvious cause the patient was prudently placed on po antibiotic, pt. is in agreement with the plan. - Vitals & Intake/Output Vital Signs: Vital Signs Temperature 98.4 F 04/23/21 12:02 Pulse Rate 80 04/23/21 12:02 Respiratory Rate 18 04/23/21 12:02 Blood Pressure 146/65 04/23/21 12:02 O2 Sat by Pulse Oximetry 97 04/23/21 12:02 Intake & Output: Intake & Output 04/24/21 04/25/21 04/26/21 04/27/21 11:59 11:59 11:59 11:59 Intake Total 380 Output Total 300 Balance 80 - Lab Result Diagrams: 04/22/21 05:08 04/22/21 05:08 Micro Results-Entire Visit: Microbiology 04/20/21 15:10 Blood Culture Gram Stain - Final Blood Not Reportable Blood Culture - Final NO GROWTH 04/20/21 14:45 Blood Culture Gram Stain - Final Blood Not Reportable Blood Culture - Final NO GROWTH 04/20/21 15:00 Urine Culture - Final Catherized NO GROWTH - Discharge Discharge Date: 04/23/21 Disposition: Home, Self-Care Condition: Stable Prescriptions: New Smz/Tmp Ds Tablet [Bactrim Ds Tablet] 1 tab PO BID 10 Days #20 tablet Continue Lisinopril 20 mg [Zestril 20 MG] 20 mg DAILY Simvastatin 40 mg [Zocor 40 mg] 40 mg DAILY Diclofenac Sodium 75 mg BID ALPRAZolam 1 MG [Xanax 1 mg] 1 mg TID Fluoxetine HCl [Rapiflux] 40 mg BID Omeprazole 20 mg PO DAILY Hydrocodone/Acetaminophen [Hydrocodone-Acetamin 10-325 mg] 1 each PO TID Gabapentin 100 mg [Neurontin 100 MG] 100 mg PO TID Instructions: Sulfamethoxazole and Trimethoprim Follow up with: KONG TAVERA MD [Primary Care Provider] - 05/07/21 9:15 am
== END 2021-04-23 15:42 | disposition home or self-care (01) | DRG 884 ==
LOC: ED 13:54 → MED SURG 14:56 → OBSVTOIN 14:56
PROVIDERS: ADMIT Family Medicine; ATTEND Family Medicine
DX: F03.90 Unspecified dementia, unspecified severity, without behavioral disturbance, psychotic disturbance, mood disturbance, and anxiety (principal); R41.82 Altered mental status, unspecified; E78.00 Pure hypercholesterolemia, unspecified; R10.9 Unspecified abdominal pain; I10 Essential (primary) hypertension; Z79.899 Other long term (current) drug therapy; Z20.828 Contact with and (suspected) exposure to other viral communicable diseases
CPT/HCPCS: 0241U; 36000; 36415; 70450; 71045; 71046; 80048; 80053; 80307; 81001; 82140; 83605; 84443; 84484; 85025; 85027; 87040; 87086; 93005; 96374; 99285; J0360; J2405; A9270-GY

== ENCOUNTER 2025-01-21 13:48 | Observation (INO) | payer MEDICARE ==
--- NOTE | 2025-01-21 13:51 | ERPHSYRPT ---
- History of Present Illness Time Seen by Provider: 01/21/25 13:51 Source: patient, EMS, old records Physician History: This is an 84-year-old white female patient brought to the emergency department by the membership coordinator service secondary to falling 3 times earlier today. Home health came out to evaluate her and found the patient disheveled, confused and living in unfit living conditions. Patient does present with mild cough and wheezing. She denies chest pain. She denies abdominal pain. She denies shortness of breath. Adult protective services is in the process of being contacted. Patient has a history of hypertension, gastroesophageal reflux disease, depression, anxiety, hyperlipidemia. The patient is to be evaluated for placement in a assisted facility. Timing/Duration: today Severity: mild (To moderate) Associated Symptoms: denies symptoms Allergies/Adverse Reactions: No Known Drug Allergies Allergy (Verified 01/21/25 13:55) Home Medications: ALPRAZolam 1 MG [Xanax 1 mg] 1 mg TID 08/19/16 [History] Diclofenac Sodium 75 mg BID 08/19/16 [History] Fluoxetine HCl [Rapiflux] 40 mg BID 08/19/16 [History] Lisinopril 20 mg [Zestril 20 MG] 20 mg DAILY 08/19/16 [History] Simvastatin 40 mg [Zocor 40 mg] 40 mg DAILY 08/19/16 [History] Gabapentin [Neurontin ] 100 mg PO TID 04/20/21 [History] Hydrocodone/Acetaminophen [Hydrocodone-Acetamin 10-325 mg] 1 each PO TID 04/20/21 [History] Omeprazole 20 mg PO DAILY 04/20/21 [History] Hx Tetanus, Diphtheria Vaccination/Date Given: No Hx Influenza Vaccination/Date Given: No Hx Pneumococcal Vaccination/Date Given: No Travel Risk - International Travel Have you traveled outside of the country in past 3 weeks: No - Emerging Infectious Disease Are you exhibiting symptoms associated with any current EIDs: No - Review of Systems Constitutional: No Symptoms Eyes: No Symptoms Ears, Nose, & Throat: No Symptoms Respiratory: Cough Cardiac: No Symptoms Abdominal/Gastrointestinal: No Symptoms Genitourinary Symptoms: No Symptoms Musculoskeletal: No Symptoms Skin: No Symptoms Neurological: No Symptoms Psychological: No Symptoms Endocrine: No Symptoms Hematologic/Lymphatic: No Symptoms Immunological/Allergic: No Symptoms All Other Systems: Reviewed and Negative - Past Medical History Pertinent Past Medical History: Yes Neurological History: No Pertinent History ENT History: No Pertinent History Cardiac History: High Cholesterol, Hypertension Respiratory History: No Pertinent History Endocrine Medical History: No Pertinent History Musculoskeletal History: No Pertinent History GI Medical History: No Pertinent History Psycho-Social History: Depression Other Medical History: DEAF - Past Surgical History Past Surgical History: Yes Respiratory: No Pertinent History Gastrointestinal: No Pertinent History Musculoskeletal: Orthopedic Surgery - Social History Smoking Status: Never smoker Exposure to second hand smoke: Yes Drug Use: none - Nursing Vital Signs Nursing Vital Signs: Initial Vital Signs Temperature 99.6 F 01/21/25 13:49 Pulse Rate 91 H 01/21/25 13:49 Respiratory Rate 18 01/21/25 13:49 Blood Pressure 148/55 01/21/25 13:49 O2 Sat by Pulse Oximetry 95 01/21/25 13:49 Pain Scale Pain Intensity 0 - Physical Exam General Appearance: no apparent distress, alert, anxiety Eye Exam: PERRL/EOMI, eyes nml inspection Ears, Nose, Throat Exam: normal ENT inspection, moist mucous membranes Neck Exam: normal inspection, non-tender, supple, full range of motion Respiratory Exam: normal breath sounds, lungs clear, airway intact, No chest tenderness, No respiratory distress Cardiovascular Exam: regular rate/rhythm, normal heart sounds, normal peripheral pulses Gastrointestinal/Abdomen Exam: soft, normal bowel sounds, No tenderness Pelvic Exam: not done Rectal Exam: not done Back Exam: normal inspection, normal range of motion, No CVA tenderness, No vertebral tenderness Extremity Exam: normal inspection, normal range of motion, pelvis stable Neurologic Exam: alert, oriented x 3, cooperative, manager utilities II-XII nml as tested, nml cerebellar function, nml station & gait, sensation nml Skin Exam: normal color, warm, dry Lymphatic Exam: No adenopathy SpO2 Interpretation: normal O2 Delivery: Room Air - Course Nursing assessment & vital signs reviewed: Yes Ordered Tests: Active Orders 24 hr Category Date Time Status EKG-ER Only STAT Care 01/21/25 14:24 Active IV Insertion STAT Care 01/21/25 14:24 Active CHEST 1 VIEW (PORTABLE) Stat Exams 01/21/25 14:27 Completed HEAD WITHOUT CONTRAST [CT] Stat Exams 01/21/25 14:43 Completed BLOOD CULTURE Stat Lab 01/21/25 15:00 Received CBC W DIFF Stat Lab 01/21/25 14:20 Completed CMP Stat Lab 01/21/25 14:20 Completed UA W/RFX UR CULTURE Stat Lab 01/21/25 15:50 Completed Medication Summary Generic Name Dose Route Start Last Admin Trade Name Tacho PRN Reason Stop Dose Admin Sodium Chloride 1,000 mls @ 100 mls/hr 01/21/25 14:30 01/21/25 14:34 Sodium Chloride 0.9% 1000 Ml IV 02/20/25 14:29 100 mls/hr .Q10H TOYA Administration Lab/Rad Data: Laboratory Result Diagrams 01/21/25 14:20 01/21/25 14:20 Laboratory Results 01/21/25 01/21/25 01/21/25 Range/Units 15:50 14:52 14:20 WBC (3.98-10.04) x10^3/uL RBC (3.93-5.22) x10^6/uL Hgb (11.2-15.7) g/dL Hct (34.1-44.9) % MCV (79.4-94.8) fL MCH (25.6-32.2) pg MCHC (32.2-35.5) g/dL RDW (11.7-14.4) % Plt Count (182-369) x10^3/uL MPV (9.4-12.3) fL Gran % (34.0-71.1) % Immature Gran % (Auto) (0.001-0.429) % Nucleat RBC Rel Count (0.00-0.2) % Eos # (Auto) (0.04-0.36) x10^3/uL Immature Gran # (Auto) (0.001-0.031) x10^3u/L Absolute Lymphs (auto) (1.18-3.74) x10^3/uL Absolute Monos (auto) (0.24-0.86) x10^3/uL Absolute Nucleated RBC (0.00-0.012) x10^3u/L Lymphocytes % (19.3-51.7) % Monocytes % (4.7-12.5) % Eosinophils % (0.7-5.8) % Basophils % (0.1-1.2) % Absolute Granulocytes (1.56-6.13) x10^3/uL Basophils # (0.01-0.08) x10^3/uL Sodium 137 (135-145) mmol/L Potassium 4.1 (3.5-5.1) mmol/L Chloride 102 (98-107) mmol/L Carbon Dioxide 20 L (22-30) mmol/L Anion Gap 20.0 H (5-15) MEQ/L BUN 18 H (7-17) mg/dL Creatinine 0.87 (0.52-1.04) mg/dL Estimated GFR 66.1 ML/MIN Glucose 206 H (74-106) mg/dL Calcium 10.2 (8.4-10.2) mg/dL Total Bilirubin 0.20 (0.2-1.3) mg/dL AST 37 H (14-36) U/L ALT 30 (0-35) U/L Alkaline Phosphatase 71 (38-126) U/L Ammonia < 9 L (9-30) umol/L Serum Total Protein 7.4 (6.3-8.2) g/dL Albumin 4.5 (3.5-5.0) g/dL Urine Color Yellow (Yellow) Urine Appearance Clear (Clear) Urine pH 5.5 (4.6-8.0) Ur Specific [place] 1.020 (1.005-1.030) Urine Protein Negative (Negative) Urine Glucose (UA) 100 A (Negative) mg/dL Urine Ketones Negative (Negative) Urine Blood Negative (Negative) Urine Nitrite Negative (Negative) Urine Bilirubin Negative (Negative) Urine Urobilinogen 0.2 (0.2) mg/dL Ur Leukocyte Esterase Negative (Negative) U Hyaline Cast (Auto) NONE SEEN (0-2) /LPF Urine Microscopic RBC 0-2 (0-5) /HPF Urine Microscopic WBC 0-2 (0-5) /HPF Ur Epithelial Cells None Seen (None Seen) /HPF Urine Bacteria None Seen (None Seen) /HPF Urine Culture Reflexed NO (NO) Slides for Path Review 01/21/25 Range/Units 14:20 WBC 11.6 H (3.98-10.04) x10^3/uL RBC 3.47 L (3.93-5.22) x10^6/uL Hgb 10.2 L (11.2-15.7) g/dL Hct 31.5 L (34.1-44.9) % MCV 90.8 (79.4-94.8) fL MCH 29.4 (25.6-32.2) pg MCHC 32.4 (32.2-35.5) g/dL RDW 14.5 H (11.7-14.4) % Plt Count 371 H (182-369) x10^3/uL MPV 9.4 (9.4-12.3) fL Gran % 91.6 H (34.0-71.1) % Immature Gran % (Auto) 0.7 H (0.001-0.429) % Nucleat RBC Rel Count 0.0 (0.00-0.2) % Eos # (Auto) 0.01 L (0.04-0.36) x10^3/uL Immature Gran # (Auto) 0.08 H (0.001-0.031) x10^3u/L Absolute Lymphs (auto) 0.56 L (1.18-3.74) x10^3/uL Absolute Monos (auto) 0.32 (0.24-0.86) x10^3/uL Absolute Nucleated RBC 0.00 (0.00-0.012) x10^3u/L Lymphocytes % 4.8 L (19.3-51.7) % Monocytes % 2.8 L (4.7-12.5) % Eosinophils % 0.1 L (0.7-5.8) % Basophils % 0.0 L (0.1-1.2) % Absolute Granulocytes 10.65 H (1.56-6.13) x10^3/uL Basophils # 0 L (0.01-0.08) x10^3/uL Sodium (135-145) mmol/L Potassium (3.5-5.1) mmol/L Chloride (98-107) mmol/L Carbon Dioxide (22-30) mmol/L Anion Gap (5-15) MEQ/L BUN (7-17) mg/dL Creatinine (0.52-1.04) mg/dL Estimated GFR ML/MIN Glucose (74-106) mg/dL Calcium (8.4-10.2) mg/dL Total Bilirubin (0.2-1.3) mg/dL AST (14-36) U/L ALT (0-35) U/L Alkaline Phosphatase (38-126) U/L Ammonia (9-30) umol/L Serum Total Protein (6.3-8.2) g/dL Albumin (3.5-5.0) g/dL Urine Color (Yellow) Urine Appearance (Clear) Urine pH (4.6-8.0) Ur Specific [place] (1.005-1.030) Urine Protein (Negative) Urine Glucose (UA) (Negative) mg/dL Urine Ketones (Negative) Urine Blood (Negative) Urine Nitrite (Negative) Urine Bilirubin (Negative) Urine Urobilinogen (0.2) mg/dL Ur Leukocyte Esterase (Negative) U Hyaline Cast (Auto) (0-2) /LPF Urine Microscopic RBC (0-5) /HPF Urine Microscopic WBC (0-5) /HPF Ur Epithelial Cells (None Seen) /HPF Urine Bacteria (None Seen) /HPF Urine Culture Reflexed (NO) Slides for Path Review YES - Progress Progress: unchanged Progress Note: 01/21/25 15:29 My medical decision making and the assignment of moderate to high complexity of this patient's medical issue today is based on review of the patient's past medical history, reviewed patient's medication list, reviewed patient drug allergy list, history present also and physical findings on examination. The workup in this patient includes placement of a intravenous line, infusion of low rate crystalloid, twelve-lead EKG, CBC, CMP, magnesium level, urinalysis, ammonia level and CT scan of the head without contrast. Differential diagnosis includes was not limited to electrolyte abnormalities, acute intracranial abnormality, dehydration, urinary tract infection, elevated ammonia level, admit for assisted placement 01/21/25 16:29 I interpreted the patient's laboratory data results. The patient has mild leukocytosis and mild anemia. I see no acute, emergent medical issues based on the laboratory data results. 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 Grossly stable atrophy and degenerative micro ischemia within normal limits. No gross acute intracranial abnormalities. The chest x-ray, per the radiologist, reveals nonacute underinflated chest with chronic features. 01/21/25 16:[address] Lorenzo, the telehospitalist on-call at this time. I reviewed the patient history, presenting complaint, physical findings on examination and the results of the workup we will place this patient in observation. We will provide the patient with low rate intravenous fluids, oral intake, recheck labs, vital sign monitoring and obtain discharge planning consultation. Counseled pt/family regarding: lab results, diagnosis, rad results Medical Desision Making - Independent Historian Additional History obtained from: Manufacturing Engineering Manager/EMT - Diagnostic Testing Diagnostic test were ordered, analyzed, and reviewed by me: Yes Radiological Interpretation: Reviewed by me, Teleradiologist Report - Risk of complications The pt has a high risk of morbidity or mortality based on: Decision regarding hospitilization or escalation of hosp level of care - Departure Departure Disposition: Observation Clinical Impression: Confusion, Unsatisfactory living conditions, Impaired activities of daily living, Risk for falls Condition: Stable Critical Care Time: No Referrals: KONG TAVERA MD [Primary Care Provider, [facility]] - Follow up/PCP as directed
[2025-01-21 14:36] LABS: BASOPHIL % 0.0 % (0.1-1.2); Basophil (Absolute #) 0 x10^3/uL (0.01-0.08); Eosinophil (Absolute #) 0.01 x10^3/uL (0.04-0.36); Hematocrit 31.5 % (34.1-44.9); Hemoglobin 10.2 g/dL (11.2-15.7); IMMATURE GRAN # 0.08 x10^3u/L (0.001-0.031); IMMATURE GRAN % 0.7 % (0.001-0.429); Lymphocyte (Absolute #) 0.56 x10^3/uL (1.18-3.74); Mean Corpuscular Hemoglobin 29.4 pg (25.6-32.2); Mean Corpuscular Hgb Concent. 32.4 g/dL (32.2-35.5); Monocyte (Absolute #) 0.32 x10^3/uL (0.24-0.86); NUCLEATED RBC # 0.00 x10^3u/L (0.00-0.012); NUCLEATED RBC % 0.0 % (0.00-0.2); Platelet Count 371 x10^3/uL (182-369); Red Blood Count 3.47 x10^6/uL (3.93-5.22); White Blood Count 11.6 x10^3/uL (3.98-10.04)
[2025-01-21 14:49] LABS: Calcium 10.2 mg/dL (8.4-10.2); Carbon Dioxide 20.0 mmol/L (22-30); Creatinine 1 0.87 mg/dL (0.52-1.04); EST GLOMERULAR FILTRATION RATE 66.1 ML/MIN; Glucose 206.0 mg/dL (74-106); Potassium 4.1 mmol/L (3.5-5.1); SGOT/AST 37.0 U/L (14-36); SGPT/ALT 30.0 U/L (0-35); Total Protein 7.4 g/dL (6.3-8.2)
--- NOTE | 2025-01-21 14:51 | XRAY ---
Indication: Cough. Comparison: April 22, 2021 Portable chest less inflated crowding both lung bases. New tiny left base calcified granuloma. No focal infiltrate, consolidation, or large effusion. Heart not enlarged again with chunky mediastinal calcified nodes. Bony thorax intact again with osteopenia and mild degenerative changes. Impression: Nonacute underinflated chest with chronic features.
--- NOTE | 2025-01-21 15:35 | XRAY ---
Indication: Confusion. Multiple contiguous axial images obtained through the head without contrast. Comparison: April 20, 2021 Again bilateral posterior cochlear implants produces extreme beam artifact limiting exam. Again age-appropriate global atrophy and moderate periventricular degenerative microischemia bilaterally. No obvious acute intracranial hemorrhage, abnormal extra-axial fluid collection, or mass effect. 4th ventricle is midline without hydrocephalus. Bony calvarium grossly intact. Visualized paranasal sinuses and mastoid air cells are clear. 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 Grossly stable atrophy and degenerative microischemia within normal limits. Again no gross acute intracranial abnormalities.
[2025-01-21 16:11] LABS: Slide Review 1 YES
[2025-01-21 16:22] LABS: Glucose, Urine 100 mg/dL (Negative); Protein,Urine Dip Negative (Negative); RBC 0-2 /HPF (0-5); WBC 0-2 /HPF (0-5)
[2025-01-21] MEDS ORDERED: TYLENOL 325 MG PO PRN ×2 (17:38→18:17)
[2025-01-21] MEDS ORDERED: HUMALOG SQ PRN (17:51)
--- NOTE | 2025-01-21 17:54 | PCM.HP ---
History of Present Illness - Chief Complaint Chief Complaint: Confusion Date: 01/21/25 History of Present Illness: is a An 84-year-old female with a past medical history of hypertension, gastroesophageal reflux disease, depression, anxiety, and hyperlipidemia was brought to the emergency department by paramedics after experiencing three falls earlier in the day. She reported new-onset weakness. Home health staff who evaluated her found the patient disheveled, confused, and living in unfit conditions. On arrival, she was noted to have a mild cough and wheezing. Adult Protective Services is being contacted per the emergency department note, and the patient has requested evaluation for correction placement, which was discussed with the ER provider. On admission, she was alert and oriented x3. Laboratory results were notable for a WBC of 11.6 and an anion gap of 20.0. Intravenous fluids were initiated. She was also started on breathing treatments, cough medication, and allergy medication for her cough and rhinorrhea. She denied chest pain, abdominal pain, nausea, vomiting, or diarrhea. - Review of Systems Constitutional: Fatigue, No Fever, No Chills Eyes: No Symptoms Ears, Nose, & Throat: No Symptoms, Nose Congestion, Sinus Drainage Respiratory: Cough, No Short Of Breath Cardiac: No Chest Pain, No Edema, No Syncope Abdominal/Gastrointestinal: No Abdominal Pain, No Nausea, No Vomiting, No Diarrhea Genitourinary Symptoms: No Dysuria Musculoskeletal: No Back Pain, No Neck Pain Skin: No Rash Neurological: No Dizziness, No Focal Weakness, No Sensory Changes Psychological: No Symptoms Endocrine: No Symptoms Hematologic/Lymphatic: No Symptoms Immunological/Allergic: No Symptoms Medications & Allergies Home Medications: Home Medication List ALPRAZolam 1 MG [Xanax 1 mg] 1 mg TID 08/19/16 [History Confirmed 04/20/21] Diclofenac Sodium 75 mg BID 08/19/16 [History Confirmed 04/20/21] Fluoxetine HCl [Rapiflux] 40 mg BID 08/19/16 [History Confirmed 04/20/21] Lisinopril 20 mg [Zestril 20 MG] 20 mg DAILY 08/19/16 [History Confirmed 04/20/21] Simvastatin 40 mg [Zocor 40 mg] 40 mg DAILY 08/19/16 [History Confirmed 04/20/21] Gabapentin [Neurontin ] 100 mg PO TID 04/20/21 [History Confirmed 04/20/21] Hydrocodone/Acetaminophen [Hydrocodone-Acetamin 10-325 mg] 1 each PO TID 04/20/21 [History Confirmed 04/20/21] Omeprazole 20 mg PO DAILY 04/20/21 [History Confirmed 04/20/21] Smz/Tmp Ds Tablet [Bactrim Ds Tablet] 1 tab PO BID 10 Days #20 tablet 04/23/21 [Rx] Allergies/Adverse Reactions: Allergies Allergy/AdvReac Type Severity Reaction Status Date / Time No Known Drug Allergies Allergy Verified 01/21/25 13:55 - Past Medical History Past Medical History: Yes Neurological History: No Pertinent History ENT History: No Pertinent History Cardiac History: High Cholesterol, Hypertension Respiratory History: No Pertinent History Endocrine Medical History: No Pertinent History Musculoskelatal History: No Pertinent History GI Medical History: No Pertinent History Pyscho-Social History: Depression Comment: DEAF - Past Surgical History Past Surgical History: Yes Respiratory Surgery: No Pertinent History GI Surgical History: No Pertinent History Musculskeletal Surgical Hx: Orthopedic Surgery - Social History Smoking Status: Never smoker Exposure to second hand smoke: Yes Alcohol: None Drug Use: none - Social Determinants of Health Will the patient participate in the screening: Yes Do you worry about a steady place to live?: No Do you have any problems with any of the following?: No known problems In the past 12 months,have you had to go without utilities?: No Have you or anyone in your house had to go without enough: No Transportation Issues: No Has anyone in your support network made you feel unsafe?: No - Physical Exam Vital Signs: Vital Signs - 24 hr Temp Pulse Resp BP BP Pulse Ox 01/21/25 17:00 79 23 158/59 97 01/21/25 16:30 82 17 149/49 01/21/25 16:00 82 22 167/54 98 01/21/25 15:30 84 22 141/42 96 01/21/25 15:18 82 20 152/38 96 01/21/25 15:01 93 H 20 159/53 97 01/21/25 13:49 99.6 F 91 H 18 148/55 95 General Appearance: no apparent distress, alert, thin Neurologic Exam: alert, oriented x 3, cooperative, normal mood/affect, nml cerebellar function, nml station & gait, sensation nml, No motor deficits Eye Exam: PERRL/EOMI, eyes nml inspection Ears, Nose, Throat Exam: normal ENT inspection, TMs normal, pharynx normal, moist mucous membranes Neck Exam: normal inspection, non-tender, supple, full range of motion Respiratory Exam: normal breath sounds, lungs clear, No respiratory distress Cardiovascular Exam: regular rate/rhythm, normal heart sounds, normal peripheral pulses Gastrointestinal/Abdomen Exam: soft, normal bowel sounds, No tenderness, No mass Back Exam: normal inspection, normal range of motion, No CVA tenderness, No vertebral tenderness Extremity Exam: normal inspection, normal range of motion, pelvis stable Skin Exam: normal color, warm, dry, No rash Lymphatic Exam: No adenopathy Results - Labs Lab/Micro Results: Lab Results-Last 24 Hours 01/21/25 01/21/25 01/21/25 Range/Units 14:20 14:20 14:52 WBC 11.6 H (3.98-10.04) x10^3/uL RBC 3.47 L (3.93-5.22) x10^6/uL Hgb 10.2 L (11.2-15.7) g/dL Hct 31.5 L (34.1-44.9) % MCV 90.8 (79.4-94.8) fL MCH 29.4 (25.6-32.2) pg MCHC 32.4 (32.2-35.5) g/dL RDW 14.5 H (11.7-14.4) % Plt Count 371 H (182-369) x10^3/uL MPV 9.4 (9.4-12.3) fL Gran % 91.6 H (34.0-71.1) % Immature Gran % (Auto) 0.7 H (0.001-0.429) % Nucleat RBC Rel Count 0.0 (0.00-0.2) % Eos # (Auto) 0.01 L (0.04-0.36) x10^3/uL Immature Gran # (Auto) 0.08 H (0.001-0.031) x10^3u/L Absolute Lymphs (auto) 0.56 L (1.18-3.74) x10^3/uL Absolute Monos (auto) 0.32 (0.24-0.86) x10^3/uL Absolute Nucleated RBC 0.00 (0.00-0.012) x10^3u/L Lymphocytes % 4.8 L (19.3-51.7) % Monocytes % 2.8 L (4.7-12.5) % Eosinophils % 0.1 L (0.7-5.8) % Basophils % 0.0 L (0.1-1.2) % Absolute Granulocytes 10.65 H (1.56-6.13) x10^3/uL Basophils # 0 L (0.01-0.08) x10^3/uL Sodium 137 (135-145) mmol/L Potassium 4.1 (3.5-5.1) mmol/L Chloride 102 (98-107) mmol/L Carbon Dioxide 20 L (22-30) mmol/L Anion Gap 20.0 H (5-15) MEQ/L BUN 18 H (7-17) mg/dL Creatinine 0.87 (0.52-1.04) mg/dL Estimated GFR 66.1 ML/MIN Glucose 206 H (74-106) mg/dL Calcium 10.2 (8.4-10.2) mg/dL Total Bilirubin 0.20 (0.2-1.3) mg/dL AST 37 H (14-36) U/L ALT 30 (0-35) U/L Alkaline Phosphatase 71 (38-126) U/L Ammonia < 9 L (9-30) umol/L Serum Total Protein 7.4 (6.3-8.2) g/dL Albumin 4.5 (3.5-5.0) g/dL Urine Color (Yellow) Urine Appearance (Clear) Urine pH (4.6-8.0) Ur Specific [place] (1.005-1.030) Urine Protein (Negative) Urine Glucose (UA) (Negative) mg/dL Urine Ketones (Negative) Urine Blood (Negative) Urine Nitrite (Negative) Urine Bilirubin (Negative) Urine Urobilinogen (0.2) mg/dL Ur Leukocyte Esterase (Negative) U Hyaline Cast (Auto) (0-2) /LPF Urine Microscopic RBC (0-5) /HPF Urine Microscopic WBC (0-5) /HPF Ur Epithelial Cells (None Seen) /HPF Urine Bacteria (None Seen) /HPF Urine Culture Reflexed (NO) Slides for Path Review YES 01/21/25 Range/Units 15:50 WBC (3.98-10.04) x10^3/uL RBC (3.93-5.22) x10^6/uL Hgb (11.2-15.7) g/dL Hct (34.1-44.9) % MCV (79.4-94.8) fL MCH (25.6-32.2) pg MCHC (32.2-35.5) g/dL RDW (11.7-14.4) % Plt Count (182-369) x10^3/uL MPV (9.4-12.3) fL Gran % (34.0-71.1) % Immature Gran % (Auto) (0.001-0.429) % Nucleat RBC Rel Count (0.00-0.2) % Eos # (Auto) (0.04-0.36) x10^3/uL Immature Gran # (Auto) (0.001-0.031) x10^3u/L Absolute Lymphs (auto) (1.18-3.74) x10^3/uL Absolute Monos (auto) (0.24-0.86) x10^3/uL Absolute Nucleated RBC (0.00-0.012) x10^3u/L Lymphocytes % (19.3-51.7) % Monocytes % (4.7-12.5) % Eosinophils % (0.7-5.8) % Basophils % (0.1-1.2) % Absolute Granulocytes (1.56-6.13) x10^3/uL Basophils # (0.01-0.08) x10^3/uL Sodium (135-145) mmol/L Potassium (3.5-5.1) mmol/L Chloride (98-107) mmol/L Carbon Dioxide (22-30) mmol/L Anion Gap (5-15) MEQ/L BUN (7-17) mg/dL Creatinine (0.52-1.04) mg/dL Estimated GFR ML/MIN Glucose (74-106) mg/dL Calcium (8.4-10.2) mg/dL Total Bilirubin (0.2-1.3) mg/dL AST (14-36) U/L ALT (0-35) U/L Alkaline Phosphatase (38-126) U/L Ammonia (9-30) umol/L Serum Total Protein (6.3-8.2) g/dL Albumin (3.5-5.0) g/dL Urine Color Yellow (Yellow) Urine Appearance Clear (Clear) Urine pH 5.5 (4.6-8.0) Ur Specific [place] 1.020 (1.005-1.030) Urine Protein Negative (Negative) Urine Glucose (UA) 100 A (Negative) mg/dL Urine Ketones Negative (Negative) Urine Blood Negative (Negative) Urine Nitrite Negative (Negative) Urine Bilirubin Negative (Negative) Urine Urobilinogen 0.2 (0.2) mg/dL Ur Leukocyte Esterase Negative (Negative) U Hyaline Cast (Auto) NONE SEEN (0-2) /LPF Urine Microscopic RBC 0-2 (0-5) /HPF Urine Microscopic WBC 0-2 (0-5) /HPF Ur Epithelial Cells None Seen (None Seen) /HPF Urine Bacteria None Seen (None Seen) /HPF Urine Culture Reflexed NO (NO) Slides for Path Review - Radiology Impressions Radiology Exams & Impressions: Radiology Procedures Category Date Time Status CHEST 1 VIEW (PORTABLE) Stat Exams 01/21/25 14:27 Completed HEAD WITHOUT CONTRAST [CT] Stat Exams 01/21/25 14:43 Completed Assessment/Plan (1) Nasal congestion Current Visit: Yes Status: Acute Assessment & Plan: - Zyrtec at HS Code(s): R09.81 - NASAL CONGESTION (2) Cough Current Visit: Yes Status: Acute Assessment & Plan: - Duonebs - Tessalon - Flu/COVID/RSV pending - CBC, CMP reviewed Code(s): R05.9 - COUGH, UNSPECIFIED (3) Leukocytosis Current Visit: Yes Status: Acute Assessment & Plan: - WBC 11.6- trend - UA, CBC, CMP reviewed - CXR reviewed Code(s): D72.829 - ELEVATED WHITE BLOOD CELL COUNT, UNSPECIFIED (4) HTN (hypertension) Current Visit: Yes Status: Chronic Assessment & Plan: - Restart home meds - Heart healthy diet Code(s): I10 - ESSENTIAL (PRIMARY) HYPERTENSION (5) Impaired activities of daily living Current Visit: Yes Status: Acute Assessment & Plan: - Found disheveled and confused - A&O x3 on admission - Pt wants placement Code(s): Z78.9 - OTHER SPECIFIED HEALTH STATUS (6) Risk for falls Current Visit: Yes Status: Acute Assessment & Plan: - PT eval - Need for placement Code(s): Z91.81 - HISTORY OF FALLING (7) Unsatisfactory living conditions Current Visit: Yes Status: Acute Assessment & Plan: - Per paramedics - Per ER note APS called Code(s): Z59.19 - OTHER INADEQUATE HOUSING (8) Altered mental status Current Visit: No Status: Resolved Assessment & Plan: - Resolved on admission VTE: Lovenox PPI: Omeprazole Next of KIN: none D/C plan: pending placement Code status: Full Plan of care time > 40 minutes Code(s): R41.82 - ALTERED MENTAL STATUS, UNSPECIFIED
[2025-01-21] MEDS ORDERED: DUONEB 0.5-3 MG/3 ml Neb IH PRN (18:04)
[2025-01-21] MEDS ORDERED: Tessalon Perles 100 MG PO PRN (18:05)
[2025-01-21 19:19] LABS: INFLUENZA A NEGATIVE (NEGATIVE); INFLUENZA B NEGATIVE (NEGATIVE); RESPIRATORY SYNCTIAL VIRUS NEGATIVE (NEGATIVE); SARS-CoV-2 Xpert Express NEGATIVE (NEGATIVE)
[2025-01-21] MEDS: CLARITIN 10 MG PO SCH (21:43)
[2025-01-21] MEDS: APRESOLINE 20 MG/ML INJ IV ONE (22:09)
[2025-01-21 23:52] VITALS: RESP 16
[2025-01-22 05:57] LABS: BASOPHIL % 0.3 % (0.1-1.2); Basophil (Absolute #) 0.03 x10^3/uL (0.01-0.08); Eosinophil (Absolute #) 0.13 x10^3/uL (0.04-0.36); Hematocrit 31.9 % (34.1-44.9); Hemoglobin 10.3 g/dL (11.2-15.7); IMMATURE GRAN # 0.09 x10^3u/L (0.001-0.031); IMMATURE GRAN % 0.9 % (0.001-0.429); Lymphocyte (Absolute #) 1.90 x10^3/uL (1.18-3.74); Mean Corpuscular Hemoglobin 28.9 pg (25.6-32.2); Mean Corpuscular Hgb Concent. 32.3 g/dL (32.2-35.5); Monocyte (Absolute #) 1.13 x10^3/uL (0.24-0.86); NUCLEATED RBC # 0.00 x10^3u/L (0.00-0.012); NUCLEATED RBC % 0.0 % (0.00-0.2); Platelet Count 378 x10^3/uL (182-369); Red Blood Count 3.56 x10^6/uL (3.93-5.22); White Blood Count 9.8 x10^3/uL (3.98-10.04)
[2025-01-22 06:30] LABS: Calcium 9.7 mg/dL (8.4-10.2); Carbon Dioxide 24.0 mmol/L (22-30); Creatinine 1 0.67 mg/dL (0.52-1.04); EST GLOMERULAR FILTRATION RATE 86.7 ML/MIN; Glucose 97.0 mg/dL (74-106); NT PRO BNPII 2490.0 pg/mL (<300); Potassium 3.7 mmol/L (3.5-5.1); SGOT/AST 29.0 U/L (14-36); SGPT/ALT 25.0 U/L (0-35); Total Protein 7.0 g/dL (6.3-8.2)
[2025-01-22 07:35] VITALS: O2SAT 97
[2025-01-22 08:24] LABS: Cholesterol 158.0 mg/dL (50-200); LDL, DIRECT 54.0 mg/dL (30-100); TRIGLYCERIDE 86.0 mg/dL (30-150)
[2025-01-22] MEDS ORDERED: NON-FORMULARY ITEM (Simvastatin 40 Mg [Zocor 40 Mg] 40 MG Tablet) PO SCH (10:00)
--- NOTE | 2025-01-22 10:03 | PCM.DS ---
Discharge Summary Date of Admission: 01/21/25 17:29 Date of Discharge: 01/22/25 Admitting Physician: CHIDI HOLLINS MD Primary Care Provider: KONG TAVERA Allergies Allergies No Known Drug Allergies Allergy (Verified 01/21/25 13:55) Hospital Summary - Hospital Course Hospital Course: The patient is an 84-year-old female with a history of hypertension, gastroesophageal reflux disease, depression, anxiety, and hyperlipidemia who presented on 01/21/25 after experiencing multiple falls and new-onset weakness. She was found by home health staff to be disheveled, confused, and living in unfit conditions, prompting involvement of Adult Protective Services. On admission, she was alert and oriented x3 with mild cough and wheezing. Workup revealed a WBC of 11.6 and an anion gap of 20.0. She was started on intravenous fluids, breathing treatments, cough medication, and allergy medication. During hospitalization, her symptoms improved, and she was able to ambulate without difficulty. Home medications were restarted, with a change of her statin to rosuvastatin due to contraindication with amlodipine. She remained alert and oriented, denied further concerns, and expressed desire to return home to care for her pets. At discharge, her cough management was continued, and her blood pressure was stable. She was medically cleared for discharge home with follow-up as appropriate. - Vitals & Intake/Output Vital Signs: Vital Signs Temperature 97.7 F 01/22/25 07:34 Pulse Rate 75 01/22/25 07:34 Respiratory Rate 16 01/22/25 07:34 Blood Pressure 180/74 01/22/25 07:34 O2 Sat by Pulse Oximetry 97 01/22/25 07:34 Intake & Output: Intake & Output 01/19/25 01/20/25 01/21/25 01/22/25 11:59 11:59 11:59 11:59 Intake Total 940 Balance 940 Weight 60.3 kg - Lab Result Diagrams: 01/22/25 05:29 01/22/25 05:29 Lab Results-Last 24 Hrs: Lab Results-Last 24 Hours 01/21/25 01/21/25 01/21/25 Range/Units 14:20 14:20 14:20 WBC 11.6 H (3.98-10.04) x10^3/uL RBC 3.47 L (3.93-5.22) x10^6/uL Hgb 10.2 L (11.2-15.7) g/dL Hct 31.5 L (34.1-44.9) % MCV 90.8 (79.4-94.8) fL MCH 29.4 (25.6-32.2) pg MCHC 32.4 (32.2-35.5) g/dL RDW 14.5 H (11.7-14.4) % Plt Count 371 H (182-369) x10^3/uL MPV 9.4 (9.4-12.3) fL Gran % 91.6 H (34.0-71.1) % Immature Gran % (Auto) 0.7 H (0.001-0.429) % Nucleat RBC Rel Count 0.0 (0.00-0.2) % Eos # (Auto) 0.01 L (0.04-0.36) x10^3/uL Immature Gran # (Auto) 0.08 H (0.001-0.031) x10^3u/L Absolute Lymphs (auto) 0.56 L (1.18-3.74) x10^3/uL Absolute Monos (auto) 0.32 (0.24-0.86) x10^3/uL Absolute Nucleated RBC 0.00 (0.00-0.012) x10^3u/L Lymphocytes % 4.8 L (19.3-51.7) % Monocytes % 2.8 L (4.7-12.5) % Eosinophils % 0.1 L (0.7-5.8) % Basophils % 0.0 L (0.1-1.2) % Absolute Granulocytes 10.65 H (1.56-6.13) x10^3/uL Basophils # 0 L (0.01-0.08) x10^3/uL Sodium 137 (135-145) mmol/L Potassium 4.1 (3.5-5.1) mmol/L Chloride 102 (98-107) mmol/L Carbon Dioxide 20 L (22-30) mmol/L Anion Gap 20.0 H (5-15) MEQ/L BUN 18 H (7-17) mg/dL Creatinine 0.87 (0.52-1.04) mg/dL Estimated GFR 66.1 ML/MIN Glucose 206 H (74-106) mg/dL Hemoglobin A1c 5.28 (4.5-6.0) % Calcium 10.2 (8.4-10.2) mg/dL Total Bilirubin 0.20 (0.2-1.3) mg/dL AST 37 H (14-36) U/L ALT 30 (0-35) U/L Alkaline Phosphatase 71 (38-126) U/L Ammonia (9-30) umol/L NT-Pro-B Natriuret Pep (<300) pg/mL Serum Total Protein 7.4 (6.3-8.2) g/dL Albumin 4.5 (3.5-5.0) g/dL Triglycerides (30-150) mg/dL Cholesterol (50-200) mg/dL LDL Cholesterol (30-100) mg/dL HDL Cholesterol (40-60) mg/dL Heart Disease Risk Ratio Urine Color (Yellow) Urine Appearance (Clear) Urine pH (4.6-8.0) Ur Specific [place] (1.005-1.030) Urine Protein (Negative) Urine Glucose (UA) (Negative) mg/dL Urine Ketones (Negative) Urine Blood (Negative) Urine Nitrite (Negative) Urine Bilirubin (Negative) Urine Urobilinogen (0.2) mg/dL Ur Leukocyte Esterase (Negative) U Hyaline Cast (Auto) (0-2) /LPF Urine Microscopic RBC (0-5) /HPF Urine Microscopic WBC (0-5) /HPF Ur Epithelial Cells (None Seen) /HPF Urine Bacteria (None Seen) /HPF Urine Culture Reflexed (NO) Influenza Type A Ag (NEGATIVE) Influenza Type B Ag (NEGATIVE) RSV (PCR) (NEGATIVE) SARS-CoV-2 (PCR) (NEGATIVE) Slides for Path Review YES 01/21/25 01/21/25 01/21/25 Range/Units 14:52 15:50 18:35 WBC (3.98-10.04) x10^3/uL RBC (3.93-5.22) x10^6/uL Hgb (11.2-15.7) g/dL Hct (34.1-44.9) % MCV (79.4-94.8) fL MCH (25.6-32.2) pg MCHC (32.2-35.5) g/dL RDW (11.7-14.4) % Plt Count (182-369) x10^3/uL MPV (9.4-12.3) fL Gran % (34.0-71.1) % Immature Gran % (Auto) (0.001-0.429) % Nucleat RBC Rel Count (0.00-0.2) % Eos # (Auto) (0.04-0.36) x10^3/uL Immature Gran # (Auto) (0.001-0.031) x10^3u/L Absolute Lymphs (auto) (1.18-3.74) x10^3/uL Absolute Monos (auto) (0.24-0.86) x10^3/uL Absolute Nucleated RBC (0.00-0.012) x10^3u/L Lymphocytes % (19.3-51.7) % Monocytes % (4.7-12.5) % Eosinophils % (0.7-5.8) % Basophils % (0.1-1.2) % Absolute Granulocytes (1.56-6.13) x10^3/uL Basophils # (0.01-0.08) x10^3/uL Sodium (135-145) mmol/L Potassium (3.5-5.1) mmol/L Chloride (98-107) mmol/L Carbon Dioxide (22-30) mmol/L Anion Gap (5-15) MEQ/L BUN (7-17) mg/dL Creatinine (0.52-1.04) mg/dL Estimated GFR ML/MIN Glucose (74-106) mg/dL Hemoglobin A1c (4.5-6.0) % Calcium (8.4-10.2) mg/dL Total Bilirubin (0.2-1.3) mg/dL AST (14-36) U/L ALT (0-35) U/L Alkaline Phosphatase (38-126) U/L Ammonia < 9 L (9-30) umol/L NT-Pro-B Natriuret Pep (<300) pg/mL Serum Total Protein (6.3-8.2) g/dL Albumin (3.5-5.0) g/dL Triglycerides (30-150) mg/dL Cholesterol (50-200) mg/dL LDL Cholesterol (30-100) mg/dL HDL Cholesterol (40-60) mg/dL Heart Disease Risk Ratio Urine Color Yellow (Yellow) Urine Appearance Clear (Clear) Urine pH 5.5 (4.6-8.0) Ur Specific [place] 1.020 (1.005-1.030) Urine Protein Negative (Negative) Urine Glucose (UA) 100 A (Negative) mg/dL Urine Ketones Negative (Negative) Urine Blood Negative (Negative) Urine Nitrite Negative (Negative) Urine Bilirubin Negative (Negative) Urine Urobilinogen 0.2 (0.2) mg/dL Ur Leukocyte Esterase Negative (Negative) U Hyaline Cast (Auto) NONE SEEN (0-2) /LPF Urine Microscopic RBC 0-2 (0-5) /HPF Urine Microscopic WBC 0-2 (0-5) /HPF Ur Epithelial Cells None Seen (None Seen) /HPF Urine Bacteria None Seen (None Seen) /HPF Urine Culture Reflexed NO (NO) Influenza Type A Ag NEGATIVE (NEGATIVE) Influenza Type B Ag NEGATIVE (NEGATIVE) RSV (PCR) NEGATIVE (NEGATIVE) SARS-CoV-2 (PCR) NEGATIVE (NEGATIVE) Slides for Path Review 01/22/25 01/22/25 01/22/25 Range/Units 05:29 05:29 05:29 WBC 9.8 (3.98-10.04) x10^3/uL RBC 3.56 L (3.93-5.22) x10^6/uL Hgb 10.3 L (11.2-15.7) g/dL Hct 31.9 L (34.1-44.9) % MCV 89.6 (79.4-94.8) fL MCH 28.9 (25.6-32.2) pg MCHC 32.3 (32.2-35.5) g/dL RDW 14.5 H (11.7-14.4) % Plt Count 378 H (182-369) x10^3/uL MPV 9.1 L (9.4-12.3) fL Gran % 66.6 (34.0-71.1) % Immature Gran % (Auto) 0.9 H (0.001-0.429) % Nucleat RBC Rel Count 0.0 (0.00-0.2) % Eos # (Auto) 0.13 (0.04-0.36) x10^3/uL Immature Gran # (Auto) 0.09 H (0.001-0.031) x10^3u/L Absolute Lymphs (auto) 1.90 (1.18-3.74) x10^3/uL Absolute Monos (auto) 1.13 H (0.24-0.86) x10^3/uL Absolute Nucleated RBC 0.00 (0.00-0.012) x10^3u/L Lymphocytes % 19.4 (19.3-51.7) % Monocytes % 11.5 (4.7-12.5) % Eosinophils % 1.3 (0.7-5.8) % Basophils % 0.3 (0.1-1.2) % Absolute Granulocytes 6.51 H (1.56-6.13) x10^3/uL Basophils # 0.03 (0.01-0.08) x10^3/uL Sodium 138 (135-145) mmol/L Potassium 3.7 (3.5-5.1) mmol/L Chloride 103 (98-107) mmol/L Carbon Dioxide 24 (22-30) mmol/L Anion Gap 14.4 (5-15) MEQ/L BUN 14 (7-17) mg/dL Creatinine 0.67 (0.52-1.04) mg/dL Estimated GFR 86.7 ML/MIN Glucose 97 (74-106) mg/dL Hemoglobin A1c (4.5-6.0) % Calcium 9.7 (8.4-10.2) mg/dL Total Bilirubin 0.20 (0.2-1.3) mg/dL AST 29 (14-36) U/L ALT 25 (0-35) U/L Alkaline Phosphatase 70 (38-126) U/L Ammonia (9-30) umol/L NT-Pro-B Natriuret Pep 2490 (<300) pg/mL Serum Total Protein 7.0 (6.3-8.2) g/dL Albumin 4.2 (3.5-5.0) g/dL Triglycerides 86 (30-150) mg/dL Cholesterol 158 (50-200) mg/dL LDL Cholesterol 54 (30-100) mg/dL HDL Cholesterol 73 H (40-60) mg/dL Heart Disease Risk Ratio 2.0 Urine Color (Yellow) Urine Appearance (Clear) Urine pH (4.6-8.0) Ur Specific [place] (1.005-1.030) Urine Protein (Negative) Urine Glucose (UA) (Negative) mg/dL Urine Ketones (Negative) Urine Blood (Negative) Urine Nitrite (Negative) Urine Bilirubin (Negative) Urine Urobilinogen (0.2) mg/dL Ur Leukocyte Esterase (Negative) U Hyaline Cast (Auto) (0-2) /LPF Urine Microscopic RBC (0-5) /HPF Urine Microscopic WBC (0-5) /HPF Ur Epithelial Cells (None Seen) /HPF Urine Bacteria (None Seen) /HPF Urine Culture Reflexed (NO) Influenza Type A Ag (NEGATIVE) Influenza Type B Ag (NEGATIVE) RSV (PCR) (NEGATIVE) SARS-CoV-2 (PCR) (NEGATIVE) Slides for Path Review - Radiology Exams Ordered Rad Exams-Entire Visit: Radiology Procedures Category Date Time Status CHEST 1 VIEW (PORTABLE) Stat Exams 01/21/25 14:27 Completed HEAD WITHOUT CONTRAST [CT] Stat Exams 01/21/25 14:43 Completed - Procedures and Test Procedures and Tests throughout Hospitalization: Therapy Orders & Screens 01/21/25 17:53 PT Eval & Treat (MD Order) ONCE Reason for Eval:: falls- placement Diagnosis: Confusion 01/21/25 21:32 ST Screen per Nursing Assess ONCE Comment: Protocol Order Physician Instructions: Greater than [address] Admission Screening Reason For Exam: Triggered on Admission Diagnosis: Confusion CVA/Dysphagia/Aphasia: No Cognitive Deficits: No Dehydration/Nutrition Deficit: Yes Reflux: No Oral-Motor Difficulties: No Pneumonia: No Mcfp Resident: No Total Points: 5 Discharge Exam General Appearance: no apparent distress, alert Neurologic Exam: alert, oriented x 3, 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, 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, normal mood/affect, nml cerebellar function, sensation nml, No motor deficits Eye Exam: PERRL, EOMI, eyes nml inspection Ears, Nose, Throat Exam: normal ENT inspection, pharynx normal, moist mucous membranes Neck Exam: normal inspection, non-tender, supple, full range of motion Respiratory Exam: normal breath sounds, lungs clear, No respiratory distress Cardiovascular Exam: regular rate/rhythm, normal heart sounds Gastrointestinal/Abdomen Exam: soft, No tenderness, No mass Pelvic Exam: deferred Rectal Exam: deferred Back Exam: normal inspection, normal range of motion, No CVA tenderness, No vertebral tenderness Extremity Exam: normal inspection, normal range of motion Skin Exam: normal color, warm, dry Final Diagnosis/Problem List - Final Discharge Diagnosis/Problem (1) Dehydration Current Visit: Yes Status: Resolved Assessment & Plan: - Anioin gap 20.0 on admission - IVF 01/22- resolved Code(s): E86.0 - DEHYDRATION (2) Nasal congestion Current Visit: Yes Status: Acute Code(s): R09.81 - NASAL CONGESTION (3) Cough Current Visit: Yes Status: Acute Code(s): R05.9 - COUGH, UNSPECIFIED (4) Leukocytosis Current Visit: Yes Status: Acute Code(s): D72.829 - ELEVATED WHITE BLOOD CELL COUNT, UNSPECIFIED (5) HTN (hypertension) Current Visit: Yes Status: Chronic Code(s): I10 - ESSENTIAL (PRIMARY) HYPERTENSION (6) Impaired activities of daily living Current Visit: Yes Status: Acute Code(s): Z78.9 - OTHER SPECIFIED HEALTH STATUS (7) Risk for falls Current Visit: Yes Status: Acute Code(s): Z91.81 - HISTORY OF FALLING (8) Unsatisfactory living conditions Current Visit: Yes Status: Acute Code(s): Z59.19 - OTHER INADEQUATE HOUSING (9) Altered mental status Current Visit: No Status: Resolved Assessment & Plan: (1) Nasal congestion Current Visit: Yes Status: Acute Assessment & Plan: - Zyrtec at HS Code(s): R09.81 - NASAL CONGESTION (2) Cough Current Visit: Yes Status: Acute Assessment & Plan: - Duonebs - Tessalon - Flu/COVID/RSV pending - CBC, CMP reviewed Code(s): R05.9 - COUGH, UNSPECIFIED (3) Leukocytosis Current Visit: Yes Status: Acute Assessment & Plan: - WBC 11.6- trend - UA, CBC, CMP reviewed - CXR reviewed: Impression: Nonacute underinflated chest with chronic features. 01/22 - resolved Code(s): D72.829 - ELEVATED WHITE BLOOD CELL COUNT, UNSPECIFIED (4) HTN (hypertension) Current Visit: Yes Status: Chronic Assessment & Plan: - Restart home meds - Heart healthy diet 01/22 - Restarted home meds this AM. if BP ok then may d/c. Code(s): I10 - ESSENTIAL (PRIMARY) HYPERTENSION (5) Impaired activities of daily living Current Visit: Yes Status: Acute Assessment & Plan: - Found disheveled and confused - A&O x3 on admission - Pt wants placement Code(s): Z78.9 - OTHER SPECIFIED HEALTH STATUS (6) Risk for falls Current Visit: Yes Status: Acute Assessment & Plan: - PT eval - Need for placement 01/22 - walked with staff on unit today w/o concern Code(s): Z91.81 - HISTORY OF FALLING (7) Unsatisfactory living conditions Current Visit: Yes Status: Acute Assessment & Plan: - Per paramedics - Per ER note APS called Code(s): Z59.19 - OTHER INADEQUATE HOUSING (8) Altered mental status Current Visit: No Status: Resolved Assessment & Plan: - Resolved on admission - Ammonia < 9 - CBC, CMP, UA reviewed - CT head: Impression: Again 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 Grossly stable atrophy and degenerative microischemia within normal limits. Again no gross acute intracranial abnormalities. Code(s): R41.82 - ALTERED MENTAL STATUS, UNSPECIFIED (10) Metabolic acidosis Current Visit: Yes Status: Resolved Assessment & Plan: - CO2 20 on admission - 01/22- Resolved with IVF D/C plan of care time> 35 minutes Code(s): E87.20 - ACIDOSIS, UNSPECIFIED - Discharge Discharge Date: 01/22/25 Disposition: HOME HEALTH SERVICE Condition: Stable Prescriptions: New Benzonatate 100 mg PO TID 10 Days #30 cap Rosuvastatin Calcium [Crestor] 20 mg PO DAILY 30 Days #30 tablet Continue Lisinopril 20 mg [Zestril 20 MG] 20 mg DAILY Diclofenac Sodium 75 mg BID ALPRAZolam 1 MG [Xanax 1 mg] 1 mg TID Fluoxetine HCl [Rapiflux] 40 mg BID Omeprazole 20 mg PO DAILY Oxybutynin Chloride [Oxybutynin Chloride ER] PO QAM Amlodipine Besylate 5 mg [Norvasc 5 mg] PO QAM Discontinued Simvastatin 40 mg [Zocor 40 mg] 40 mg DAILY Follow up with: KONG TAVERA MD [Primary Care Provider, [facility]]
[2025-01-22] MEDS: ENOXAPARIN SODIUM SQ SCH (10:24)
[2025-01-22] MEDS: NORVASC 5 MG PO SCH (10:26)
[2025-01-22] MEDS: Zestril 20 MG PO SCH (10:26)
[2025-01-22] MEDS: Prozac 20 MG PO SCH (10:26)
[2025-01-22] MEDS: Protonix 40MG Tablet PO SCH (10:26)
[2025-01-22] MEDS: DICLOFENAC SODIUM PO SCH (10:26)
[2025-01-22] MEDS: Ditropan XL 5 MG PO SCH (10:35)
[2025-01-22] MEDS: XANAX 1 MG PO ONE (10:35)
[2025-01-22 11:50] VITALS: BP 130/69; PULSE 92; TEMP 97.6
== END 2025-01-22 13:15 | disposition home health service (06) ==
LOC: ED 13:48 → MED SURG 17:29
PROVIDERS: ADMIT Internal Medicine; ATTEND Internal Medicine
DX: E86.0 Dehydration (principal); R09.81 Nasal congestion; R05.8 Other specified cough; D72.829 Elevated white blood cell count, unspecified; I10 Essential (primary) hypertension; Z91.81 History of falling; Z59.19 Other inadequate housing; Z74.1 Need for assistance with personal care; R41.82 Altered mental status, unspecified; E87.20 Acidosis, unspecified; E78.5 Hyperlipidemia, unspecified; K21.9 Gastro-esophageal reflux disease without esophagitis; Z79.899 Other long term (current) drug therapy
CPT/HCPCS: 36415; 70450; 71045; 80053; 80061; 81001; 82140; 83036; 83721; 83880; 85025; 87040; 87637; 93005; 93268; 99285; G0378; Q3014